=== PATIENT | female | born 1950 | race American Indian/Alaskan Native ===

== ENCOUNTER 2017-08-05 20:04 | Inpatient (IN) | payer BC, MEDICARE ==
--- NOTE | 2017-08-05 20:42 | Emergency Department Report ---
ED Shortness of Breath HPI - General Chief Complaint: Dyspnea/Respdistress Stated Complaint: THOMAS Time Seen by Provider: 08/05/17 20:38 Source: patient, family, EMS Mode of arrival: Stretcher Limitations: Altered Mental Status - History of Present Illness Initial Comments: Discussed HPI with patient. Patient states that she has been off her medications for two months and that her had two months ago. Her daughter states that she has not taken her medications in over a year, as well as patient's two years ago. The daughter says her memory has been bad for over a year. MD Complaint: shortness of breath -: week(s) (Patient says weeks, her family says months.) Severity: moderate Pain Scale: 0 Improves With: nothing Worsens With: nothing Known History Of: asthma Associated Symptoms: denies other symptoms - Related Data Home Medications Medication Instructions Recorded Confirmed Last Taken Levothyroxine [Synthroid] 150 mcg PO DAILY 05/28/14 01/25/15 Unknown Lisinopril/Hydrochlorothiazide 1 tab PO DAILY 05/28/14 01/25/15 Unknown [Zestoretic 20-25 mg] ALPRAZolam [Xanax TAB] 1 mg PO QHS 01/25/15 01/25/15 Unknown Amlodipine Besylate/Benazepril 1 cap PO DAILY 01/25/15 01/25/15 Unknown [amLODIPine-Benazepril 10/40 mg] Ciprofloxacin HCl [Cipro] 500 mg PO BID 01/25/15 01/25/15 Unknown Tramadol HCl [traMADol] 50 mg PO Q4H PRN 01/25/15 01/25/15 Unknown Previous Rx's Medication Instructions Recorded Last Taken Type Aspirin EC [Aspirin Enteric Coated 325 mg PO QDAY #30 tablet 05/30/14 Unknown Rx TAB] Metoprolol [Lopressor TAB] 25 mg PO BID #60 tablet 05/30/14 Unknown Rx Prasugrel [Effient] 10 mg PO QDAY #30 tablet 05/30/14 Unknown Rx Simvastatin [Zocor TAB] 10 mg PO QHS #30 tablet 05/30/14 Unknown Rx Cyclobenzaprine HCl [Flexeril 5mg] 5 mg PO Q8HR PRN #20 tablet 01/25/15 Unknown Rx HYDROcodone/APAP 5-325 [[place] 1 each PO Q6HR PRN #20 tablet 01/25/15 Unknown Rx 5/325] Ibuprofen [Motrin] 600 mg PO Q8H PRN #30 tablet 01/25/15 Unknown Rx Allergies Allergy/AdvReac Type Severity Reaction Status Date / Time codeine Allergy Itching Verified 05/26/14 19:56 shellfish derived Allergy Itching Verified 01/25/15 09:27 ED Review of Systems ROS: Stated complaint: THOMAS Other details as noted in HPI Comment: All other systems reviewed and negative Constitutional: see HPI. denies: chills, fever Eyes: denies: eye pain, eye discharge, vision change ENT: denies: ear pain, throat pain Respiratory: SOB with exertion, SOB at rest. denies: cough, shortness of breath , wheezing Cardiovascular: edema. denies: chest pain, palpitations Endocrine: no symptoms reported Gastrointestinal: denies: abdominal pain, nausea, diarrhea Genitourinary: denies: urgency, dysuria, discharge Musculoskeletal: denies: back pain, joint swelling, arthralgia Skin: denies: rash, lesions Neurological: denies: headache, weakness, paresthesias Psychiatric: denies: anxiety, depression Hematological/Lymphatic: denies: easy bleeding, easy bruising ED Past Medical Hx - Past Medical History Hx Hypertension: Yes Hx Heart Attack/AMI: Yes Hx Diabetes: Yes Hx Arthritis: Yes Hx Asthma: Yes Additional medical history: hypothyroid - Surgical History Additional Surgical History: 2 c sections, left hip surgery. - Social History Smoking Status: Former Smoker Substance Use Type: None - Medications Home Medications: Home Medications Medication Instructions Recorded Confirmed Last Taken Type Levothyroxine [Synthroid] 150 mcg PO DAILY 05/28/14 01/25/15 Unknown History Lisinopril/Hydrochlorothiazide 1 tab PO DAILY 05/28/14 01/25/15 Unknown History [Zestoretic 20-25 mg] Aspirin EC [Aspirin Enteric Coated 325 mg PO QDAY #30 tablet 05/30/14 01/25/15 Unknown Rx TAB] Metoprolol [Lopressor TAB] 25 mg PO BID #60 tablet 05/30/14 01/25/15 Unknown Rx Prasugrel [Effient] 10 mg PO QDAY #30 tablet 05/30/14 01/25/15 Unknown Rx Simvastatin [Zocor TAB] 10 mg PO QHS #30 tablet 05/30/14 01/25/15 Unknown Rx ALPRAZolam [Xanax TAB] 1 mg PO QHS 01/25/15 01/25/15 Unknown History Amlodipine Besylate/Benazepril 1 cap PO DAILY 01/25/15 01/25/15 Unknown History [amLODIPine-Benazepril 10/40 mg] Ciprofloxacin HCl [Cipro] 500 mg PO BID 01/25/15 01/25/15 Unknown History Cyclobenzaprine HCl [Flexeril 5mg] 5 mg PO Q8HR PRN #20 tablet 01/25/15 Unknown Rx HYDROcodone/APAP 5-325 [[place] 1 each PO Q6HR PRN #20 tablet 01/25/15 Unknown Rx 5/325] Ibuprofen [Motrin] 600 mg PO Q8H PRN #30 tablet 01/25/15 Unknown Rx Tramadol HCl [traMADol] 50 mg PO Q4H PRN 01/25/15 01/25/15 Unknown History ED Physical Exam - General Limitations: Altered Mental Status General appearance: alert, in no apparent distress, obese - Head Head exam: Present: atraumatic, normocephalic - Eye Eye exam: Present: normal appearance - ENT ENT exam: Present: mucous membranes moist - Neck Neck exam: Present: normal inspection - Respiratory Respiratory exam: Present: rales. Absent: respiratory distress - Expanded Respiratory Exam Expanded Location: Rales: Right, Left, Lower, Decreased Breath Sounds: Right - Cardiovascular Cardiovascular Exam: Present: regular rate, normal rhythm. Absent: systolic murmur, diastolic murmur, rubs, gallop - GI/Abdominal GI/Abdominal exam: Present: soft, normal bowel sounds. Absent: distended, tenderness - Rectal Rectal exam: Present: deferred - Extremities Exam Extremities exam: Present: normal inspection - Back Exam Back exam: Present: normal inspection - Neurological Exam Neurological exam: Present: alert, oriented X3, CN II-XII intact - Psychiatric Psychiatric exam: Present: normal affect, normal mood, flat affect - Expanded Psychiatric Exam Expanded Focused psych exam: Present: delusional, paranoid, flight of ideas, loose associations - Skin Skin exam: Present: warm, dry, intact, normal color. Absent: rash ED Course Vital Signs 08/05/17 08/05/17 08/05/17 20:52 21:06 21:25 Temperature 98.5 F 98.5 F Pulse Rate 85 85 Respiratory 20 20 20 Rate Blood Pressure 161/85 Blood Pressure 161/85 [Left] O2 Sat by Pulse 96 96 96 Oximetry 08/05/17 22:55 Temperature Pulse Rate 86 Respiratory Rate Blood Pressure 145/90 Blood Pressure [Left] O2 Sat by Pulse Oximetry ED Medical Decision Making - Lab Data Result diagrams: 08/05/17 22:56 08/05/17 22:08 - EKG Data -: EKG Interpreted by Me EKG shows normal: sinus rhythm Rate: normal - EKG Data When compared to previous EKG there are: changes noted Interpretation: nonspecific ST-T wave joaquin, other (prolonged QT) - Radiology Data Radiology results: pending - Medical Decision Making Discussed patient with Dr. Nunes, Hospitalist. She has arrived in the ER and evaluated patient and admit. Critical care attestation.: If time is entered above; I have spent that time in minutes in the direct care of this critically ill patient, excluding procedure time. ED Disposition Clinical Impression: Altered mental status, unspecified Disposition: [id number] OP ADMIT IP TO THIS HOSP Is pt being admited?: Yes Does the pt Need Aspirin: No Condition: Stable Referrals: PRIMARY CARE, [Primary Care Provider] - 3-5 Days
[2017-08-05] MEDS ORDERED: NACL 0.9% 1000 ML 1,000 ML IV ONE (22:01)
[2017-08-05] MEDS ORDERED: CATAPRES PO ONE (22:08)
[2017-08-05 22:49] LABS: Alanine Aminotransferase 10 units/L (7-56); Albumin 3.9 g/dL (3.9-5); BUN/Creatinine Ratio 7; Blood Urea Nitrogen 5 mg/dL (7-17); Calcium 8.1 mg/dL (8.4-10.2); Hemolysis Index 28
[2017-08-05 23:20] LABS: Basophils % (Auto) 0.6 % (0.0-1.8); Eosinophils % (Auto) 0.3 % (0.0-4.3); Hematocrit 32.6 % (30.3-42.9); Lymphocytes # (Auto) 0.3 K/mm3 (1.2-5.4); Lymphocytes % (Auto) 5.4 % (13.4-35.0); Mean Corpuscular HGB Conc 34 % (30-34); Mean Corpuscular Hemoglobin 29 pg (28-32); Mean Corpuscular Volume 85 fl (79-97); Monocytes # (Auto) 0.2 K/mm3 (0.0-0.8); Monocytes % (Auto) 4.5 % (0.0-7.3); Platelet Count 294 K/mm3 (140-440); Red Blood Count 3.84 M/mm3 (3.65-5.03); Red Cell Distribution Width 14.8 % (13.2-15.2)
--- NOTE | 2017-08-05 23:26 | History and Physical Report ---
History of Present Illness Date of examination: 08/05/17 Chief complaint: Shortness of breath History of present illness: Patient is a 67-year-old female who has been brought to the ER for altered mental status severe confusion. The patient has baseline dementia which has been rapidly and progressively worsening over the past 2 years. Patient was brought in by the daughter herself is being seen in the emergency room. Patient could not provide any history so most of the history is obtained from the daughter. As per Dr. Cross the patient lost her daughter because of diabetes and its complications back in 2011 and after that she started declining was grieving then into depression and started using her memory. He stopped taking her medicines stopped taking care for himself and stopped going to the doctor' s. Patient also lost her in February 2016 since then her depression and her grieving doubled and she completely lost any interest in herself. She stopped taking all of her medications and stopped bathing and stopped going out of the house. Over the past 2 past the patient has been rapidly declining and today she started complaining of feeling very bad and was also complaining of severe shortness of breath so she was brought to the ER for further evaluation and management. The daughter did not report any fevers chills headache nausea vomiting. No tingling numbness or weakness except for generalized weakness. No abdominal plain diet without nausea or vomiting no other GI or symptoms Past History Past Medical History: arthritis, CAD, diabetes, GERD, hypertension, hyperlipidemia, hypothyroidism, other Past Surgical History: cholecystectomy, , total hip replacement, Other (status post PCI ) Social history: lives with family, full code. denies: smoking, alcohol abuse Family history: diabetes, hypertension Medications and Allergies Allergies Allergy/AdvReac Type Severity Reaction Status Date / Time codeine Allergy Itching Verified 05/26/14 19:56 shellfish derived Allergy Itching Verified 01/25/15 09:27 Home Medications Medication Instructions Recorded Confirmed Last Taken Type Levothyroxine [Synthroid] 150 mcg PO DAILY 05/28/14 01/25/15 Unknown History Lisinopril/Hydrochlorothiazide 1 tab PO DAILY 05/28/14 01/25/15 Unknown History [Zestoretic 20-25 mg] Aspirin EC [Aspirin Enteric Coated 325 mg PO QDAY #30 tablet 05/30/14 01/25/15 Unknown Rx TAB] Metoprolol [Lopressor TAB] 25 mg PO BID #60 tablet 05/30/14 01/25/15 Unknown Rx Prasugrel [Effient] 10 mg PO QDAY #30 tablet 05/30/14 01/25/15 Unknown Rx Simvastatin [Zocor TAB] 10 mg PO QHS #30 tablet 05/30/14 01/25/15 Unknown Rx ALPRAZolam [Xanax TAB] 1 mg PO QHS 01/25/15 01/25/15 Unknown History Amlodipine Besylate/Benazepril 1 cap PO DAILY 01/25/15 01/25/15 Unknown History [amLODIPine-Benazepril 10/40 mg] Ciprofloxacin HCl [Cipro] 500 mg PO BID 01/25/15 01/25/15 Unknown History Cyclobenzaprine HCl [Flexeril 5mg] 5 mg PO Q8HR PRN #20 tablet 01/25/15 Unknown Rx HYDROcodone/APAP 5-325 [[place] 1 each PO Q6HR PRN #20 tablet 01/25/15 Unknown Rx 5/325] Ibuprofen [Motrin] 600 mg PO Q8H PRN #30 tablet 01/25/15 Unknown Rx Tramadol HCl [traMADol] 50 mg PO Q4H PRN 01/25/15 01/25/15 Unknown History Active Meds: Active Medications Sodium Chloride (Nacl 0.9% 1000 Ml) 1,000 mls @ 125 mls/hr IV ONCE ONE Stop: 08/06/17 06:00 Last Admin: 08/05/17 22:55 Dose: 125 mls/hr Review of Systems ROS unobtainable: due to mental status Exam - Physical Exam Narrative exam: General: the patient morbidly obese. She is awake alert oriented to self only but not to time place and person. no evidence of acute distress but she is obviously hallucinating seeing her mother and brother and asking me if I can see her too. Her mother in 1986. HEENT: Head is atraumatic normocephalic,. Pupils equal round reactive to light and accommodation, extraocular movements intact. Oral mucosa moist. Oropharynx clear. No pharyngeal erythema or tonsillar exudate. Neck: Supple no JVD no thyromegaly or lymphadenopathy. Heart: Regular rate and rhythm no murmurs or gallops. S1 and S2 normal. PMI not displaced. Lungs: Diffuse rales and rhonchi bilaterally but no wheezing. Mildly labored breathing but no accessory respiratory muscle use. Normal chest wall expansion. Abdomen: Soft, obese, nondistended, and nontender. Normoactive bowel sounds. No hepatosplenomegaly. No abdominal masses or bruit appreciated. Extremities: No cyanosis/clubbing. There is 1+ edema bilateral lower extremities Musculoskeletal: Normal range of movement all joints. No obvious deformity or tenderness to palpation. Normal muscle tone. Back: Normal alignment. No step-off. No midline or paraspinal tenderness. No CVA tenderness. Neurological: Grossly intact and nonfocal. Limited exam because of her altered mental status. Patient moving all 4 extremities equally bilaterally. She is able to follow simple commands. Strength 5 out of 5 all 4 extremities. Skin: Warm and dry no rashes or bruises. Psychiatric: Normal mood. Patient is severely confused and having visual hallucinations. Patient also is exhibiting severe cognitive impairment. Impaired judgment. No paranoia. She is delusional and disoriented. Otherwise able to follow simple commands Vascular system: No lymphadenopathy. Distal pulses 2+ bilaterally. - Constitutional Vitals: Temp Pulse Resp BP Pulse Ox 98.5 F 86 20 145/90 96 08/05/17 21:06 08/05/17 22:55 08/05/17 21:25 08/05/17 22:55 08/05/17 21:25 Results - Labs CBC & Chem 7: 08/05/17 22:56 08/05/17 22:08 Labs: Laboratory Last Values WBC 5.5 K/mm3 (4.5-11.0) 08/05/17 22:56 RBC 3.84 M/mm3 (3.65-5.03) 08/05/17 22:56 Hgb 11.0 gm/dl (10.1-14.3) 08/05/17 22:56 Hct 32.6 % (30.3-42.9) 08/05/17 22:56 MCV 85 fl (79-97) 08/05/17 22:56 MCH 29 pg (28-32) 08/05/17 22:56 MCHC 34 % (30-34) 08/05/17 22:56 RDW 14.8 % (13.2-15.2) 08/05/17 22:56 Plt Count 294 K/mm3 (140-440) 08/05/17 22:56 Lymph % (Auto) 5.4 % (13.4-35.0) L 08/05/17 22:56 [place] % (Auto) 4.5 % (0.0-7.3) 08/05/17 22:56 Eos % (Auto) 0.3 % (0.0-4.3) 08/05/17 22:56 Baso % (Auto) 0.6 % (0.0-1.8) 08/05/17 22:56 Lymph # 0.3 K/mm3 (1.2-5.4) L 08/05/17 22:56 Sampson # 0.2 K/mm3 (0.0-0.8) 08/05/17 22:56 Eos # 0.0 K/mm3 (0.0-0.4) 08/05/17 22:56 Baso # 0.0 K/mm3 (0.0-0.1) 08/05/17 22:56 Seg Neutrophils % 89.2 % (40.0-70.0) H 08/05/17 22:56 Seg Neutrophils # 4.9 K/mm3 (1.8-7.7) 08/05/17 22:56 Sodium 137 mmol/L (137-145) 08/05/17 22:08 Potassium 3.0 mmol/L (3.6-5.0) L 08/05/17 22:08 Chloride 89.3 mmol/L (98-107) L 08/05/17 22:08 Carbon Dioxide 25 mmol/L (22-30) 08/05/17 22:08 Anion Gap 26 mmol/L 08/05/17 22:08 BUN 5 mg/dL (7-17) L 08/05/17 22:08 Creatinine 0.7 mg/dL (0.7-1.2) 08/05/17 22:08 Estimated GFR > 60 ml/min 08/05/17 22:08 BUN/Creatinine Ratio 7 % 08/05/17 22:08 Glucose 117 mg/dL (65-100) H 08/05/17 22:08 POC Glucose 115 (70-105) H 08/05/17 22:45 Calcium 8.1 mg/dL (8.4-10.2) L 12/27/17 22:08 Total Bilirubin 2.00 mg/dL (0.1-1.2) H 08/05/17 22:08 AST 20 units/L (5-40) 08/05/17 22:08 ALT 10 units/L (7-56) 08/05/17 22:08 Alkaline Phosphatase 67 units/L (35-129) 08/05/17 22:08 Troponin T 0.028 ng/mL (0.00-0.029) 08/05/17 22:08 Total Protein 7.9 g/dL (6.3-8.2) 08/05/17 22:08 Albumin 3.9 g/dL (3.9-5) 08/05/17 22:08 Albumin/Globulin Ratio 1.0 % 08/05/17 22:08 - Imaging and Cardiology Imaging and Cardiology: Chest x-ray showing bands of atelectasis in both bases. No dense consolidations or effusions seen. Pulmonary vasculature appear normal. Assessment and Plan Assessment and plan: Assessment and plan - * Altered mental status - likely multifactorial worsening dementia plus acute delirium plus severe depression * Shortness of breath - likely underlying CHF versus pneumonia * Pneumonia - likely right lower lobe although chest x-ray negative except for bilateral lower lobe atelectasis * Coronary artery disease status post PCI in 2013 * Diabetes mellitus type 2 * Hypothyroidism * Hypokalemia Plan - -Will admit the patient to medical floor for telemetry Echocardiogram to evaluate underlying cardiac function Lasix for diuresis Replace potassium and monitor We will also get a CTA chest to rule out PE versus pneumonia versus CHF Empiric Levaquin for possible pneumonia Monitor CBC and electrolytes Replace electrolytes when necessary as per protocol DVT GI prophylaxis as ordered Monitor and follow the patient closely Advance Directives: No VTE prophylaxis?: Chemical, Mechanical Plan of care discussed with patient/family: Yes
[2017-08-05] MEDS ORDERED: MILK OF MAGNESIA PO PRN (23:28)
[2017-08-05] MEDS ORDERED: DULCOLAX PR PRN (23:28)
[2017-08-05] MEDS ORDERED: TYLENOL PO PRN (23:28)
[2017-08-05] MEDS ORDERED: AMBIEN PO PRN (23:28)
[2017-08-05] MEDS ORDERED: PROVENTIL IH PRN (23:28)
[2017-08-05 23:31] LABS: INR 0.97 (0.87-1.13)
[2017-08-05 23:32] LABS: Partial Thromboplastin Time 27.5 Sec. (24.2-36.6)
[2017-08-05] MEDS ORDERED: ULTRAM PO PRN (23:39)
[2017-08-05] MEDS ORDERED: APRESOLINE IV PRN (23:42)
--- NOTE | 2017-08-06 00:08 | XRay Report ---
FINAL REPORT PROCEDURE: XR CHEST 1V AP TECHNIQUE: Chest radiograph anteroposterior view. CPT 97733 HISTORY: SOB COMPARISON: No prior studies are available for comparison. FINDINGS: There is a linear band of increased density overlying the lower 3rd of the right lung and a smaller band of increased density lateral to the left heart border suggesting bands of atelectasis. No dense consolidations or effusions are identified. Heart size and pulmonary vasculature appear normal. No acute bony abnormalities are identified. IMPRESSION: Bands of atelectasis suspected in both bases. No other abnormalities are identified..
[2017-08-06 01:03] LABS: Creatine Kinase MB 2.1 ng/mL (0.0-4.0)
[2017-08-06 01:52] LABS: Chol/HDL Ratio 8.02 %
[2017-08-06] MEDS ORDERED: NACL ONE (02:24)
[2017-08-06 06:31] LABS: Hematocrit 33.9 % (30.3-42.9); Hemoglobin 11.1 gm/dl (10.1-14.3); Mean Corpuscular HGB Conc 33 % (30-34); Mean Corpuscular Hemoglobin 28 pg (28-32); Mean Corpuscular Volume 86 fl (79-97); Platelet Count 323 K/mm3 (140-440); Red Blood Count 3.94 M/mm3 (3.65-5.03)
[2017-08-06 06:48] LABS: Creatine Kinase MB 2.5 ng/mL (0.0-4.0)
[2017-08-06 06:52] LABS: Alanine Aminotransferase 10 units/L (7-56); Albumin 3.8 g/dL (3.9-5); BUN/Creatinine Ratio 8; Blood Urea Nitrogen 5 mg/dL (7-17); Calcium 8.1 mg/dL (8.4-10.2); Hemolysis Index 9
[2017-08-06 07:05] LABS: Free T4 (Free Thyroxine) 0.1 ng/dL (0.76-1.46)
--- NOTE | 2017-08-06 08:15 | Cat Scan Report ---
CT CHEST WITHOUT CONTRAST: HISTORY: Shortness of breath. COMPARISON: CTA chest dated 05/07/12. TECHNIQUE: Helical CT in 1.25mm intervals without IV contrast. Sagittal and coronal reformatted images. FINDINGS: Thyroid gland: Normal. Tracheobronchial tree: Normal. Esophagus: Normal. Heart: Normal size. Mild coronary artery calcifications are noted. Pericardium: Normal. Mediastinum: Normal. Lung [place]: There are moderate atelectatic changes at the right lung base and mild atelectatic changes at the left lung base. There is mild consolidation in the posterior segment of the right lower lobe but this probably represents atelectasis and not infiltrate, please correlate with the patient's clinical presentation. No underlying parenchymal lung disease is appreciated. Pleural Spaces: Small right pleural effusion has developed which is of uncertain etiology. No pneumothorax. Musculoskeletal: Mild to moderate thoracic spondylosis. No fracture or suspicious bony lesion. Diffuse decreased attenuation has developed in the liver since previous exam suggesting diffuse fatty infiltration or liver edema. Cholecystectomy changes. IMPRESSION: Small right pleural effusion of uncertain etiology. Bibasilar atelectatic changes, right greater than left. Diffuse hypoattenuation of the liver has developed most consistent with diffuse fatty infiltration.
[2017-08-06 08:34] LABS: Band Neutrophils # (Manual) 0.1 K/mm3; Basophils % (Manual) 0 % (0.0-1.8); Eosinophils % (Manual) 0 % (0.0-4.3); Total Cells Counted 100
[2017-08-06 08:35] LABS: Anisocytosis 1+; Ovalocytes 1+
--- NOTE | 2017-08-06 09:13 | Progress Note ---
Assessment and Plan Assessment and plan: Patient is a 67-year-old female who has been brought to the ER for altered mental status severe confusion. The patient has baseline dementia which has been rapidly and progressively worsening over the past 2 years. Patient was brought in by the daughter herself is being seen in the emergency room. P the patient lost her daughter because of diabetes and its complications back in 2011 and after that she started declining was grieving then into depression and started losing her memory. He stopped taking her medicines stopped taking care for herself and stopped going to the doctor's. Patient also lost her in February 2016 since then her depression and her grieving doubled and she completely lost any interest in herself. She stopped taking all of her medications and stopped bathing and stopped going out of the house. Over the past 2 past the patient has been rapidly declining and today she started complaining of feeling very bad and was also complaining of severe shortness of breath so she was brought to the ER for further evaluation and management. Assessment and plan - Acute Metabolic encephalopathy - likely multifactorial worsening dementia plus acute delirium plus severe depression, plus severe hypothyroidism Acute respiratory failure with hypoxia - PNA ruled out, will obtain CTA chest, continue nebs, oxygen supplement and lasix Coronary artery disease status post PCI in 2013 COPD exacerbation? Pulmonary consult, continue nebs, steroids and abx Systolic CHF with exacerbation echo shows EF of 40%, continue lasix, cardiology consult Major Depression, mental health consult Diabetes mellitus type 2: continue SSI Hypothyroidism, T4 markedly reduced, Hypokalemia: fup magnesium, replace IV and PO Severe malnutrition: statement clerks manager consult, encouraged to increase PO intake Hyperlipidemia LDL 275- resumed statin History Interval history: admits sob, herrera, denies CP denies fever or chills admits generalized weakness denies focal weakness admits constipation no diarrhea Hospitalist Physical - Constitutional Vitals: Temp Pulse Resp BP Pulse Ox 98.9 F 114 H 20 160/111 96 08/06/17 07:22 08/06/17 07:22 08/06/17 07:22 08/06/17 07:22 08/06/17 07:22 General appearance: Present: no acute distress, disheveled, other (appears chronically ill) - EENT Eyes: Present: PERRL, EOM intact ENT: hearing intact, clear oral mucosa - Neck Neck: Present: supple, normal ROM - Respiratory Respiratory effort: normal Respiratory: bilateral: rhonchi - Cardiovascular Rhythm: regular Heart Sounds: Present: S1 & S2 - Extremities Extremities: no ischemia Peripheral Pulses: within normal limits - Abdominal General gastrointestinal: soft, non-tender - Integumentary Integumentary: Present: clear, warm - Psychiatric Psychiatric: no appropriate mood/affect (depr), depressed - Neurologic Neurologic: CNII-XII intact, focal deficits, moves all extremities Results - Labs CBC & Chem 7: 08/06/17 06:03 08/06/17 06:03 Labs: Laboratory Last Values WBC 5.6 K/mm3 (4.5-11.0) 08/06/17 06:03 RBC 3.94 M/mm3 (3.65-5.03) 08/06/17 06:03 Hgb 11.1 gm/dl (10.1-14.3) 08/06/17 06:03 Hct 33.9 % (30.3-42.9) 08/06/17 06:03 MCV 86 fl (79-97) 08/06/17 06:03 MCH 28 pg (28-32) 08/06/17 06:03 MCHC 33 % (30-34) 08/06/17 06:03 RDW 15.0 % (13.2-15.2) 08/06/17 06:03 Plt Count 323 K/mm3 (140-440) 08/06/17 06:03 Lymph % (Auto) 5.4 % (13.4-35.0) L 08/05/17 22:56 [place] % (Auto) 4.5 % (0.0-7.3) 08/05/17 22:56 Eos % (Auto) 0.3 % (0.0-4.3) 08/05/17 22:56 Baso % (Auto) 0.6 % (0.0-1.8) 08/05/17 22:56 Lymph # 0.3 K/mm3 (1.2-5.4) L 08/05/17 22:56 [place] # 0.2 K/mm3 (0.0-0.8) 08/05/17 22:56 Eos # 0.0 K/mm3 (0.0-0.4) 08/05/17 22:56 Baso # 0.0 K/mm3 (0.0-0.1) 08/05/17 22:56 Add Manual Diff Complete 08/06/17 06:03 Total Counted 100 08/06/17 06:03 Seg Neutrophils % Retail Support Specialist 08/06/17 06:03 Seg Neuts % (Manual) 90.0 % (40.0-70.0) H 08/06/17 06:03 Band Neutrophils % 1.0 % 08/06/17 06:03 Lymphocytes % (Manual) 8.0 % (13.4-35.0) L 08/06/17 06:03 Reactive Lymphs % (Man) 0 % 08/06/17 06:03 Monocytes % (Manual) 1.0 % (0.0-7.3) 08/06/17 06:03 Eosinophils % (Manual) 0 % (0.0-4.3) 08/06/17 06:03 Basophils % (Manual) 0 % (0.0-1.8) 08/06/17 06:03 Metamyelocytes % 0 % 08/06/17 06:03 Myelocytes % 0 % 08/06/17 06:03 Promyelocytes % 0 % 08/06/17 06:03 Blast Cells % 0 % 08/06/17 06:03 Nucleated RBC % Not Reportable 08/06/17 06:03 Seg Neutrophils # 4.9 K/mm3 (1.8-7.7) 08/05/17 22:56 Seg Neutrophils # Man 5.0 K/mm3 (1.8-7.7) 08/06/17 06:03 Band Neutrophils # 0.1 K/mm3 08/06/17 06:03 Lymphocytes # (Manual) 0.4 K/mm3 (1.2-5.4) L 08/06/17 06:03 Abs React Lymphs (Man) 0.0 K/mm3 08/06/17 06:03 Monocytes # (Manual) 0.1 K/mm3 (0.0-0.8) 08/06/17 06:03 Eosinophils # (Manual) 0.0 K/mm3 (0.0-0.4) 08/06/17 06:03 Basophils # (Manual) 0.0 K/mm3 (0.0-0.1) 08/06/17 06:03 Metamyelocytes # 0.0 K/mm3 08/06/17 06:03 Myelocytes # 0.0 K/mm3 08/06/17 06:03 Promyelocytes # 0.0 K/mm3 08/06/17 06:03 Blast Cells # 0.0 K/mm3 08/06/17 06:03 WBC Morphology Not Reportable 08/06/17 06:03 Hypersegmented Neuts Not Reportable 08/06/17 06:03 Hyposegmented Neuts Not Reportable 08/06/17 06:03 Hypogranular Neuts Not Reportable 08/06/17 06:03 Smudge Cells Not Reportable 08/06/17 06:03 Toxic Granulation Not Reportable 08/06/17 06:03 Toxic Vacuolation Not Reportable 08/06/17 06:03 Dohle Bodies Not Reportable 08/06/17 06:03 Pelger-Huet Anomaly Not Reportable 08/06/17 06:03 [place] Rods Not Reportable 08/06/17 06:03 Platelet Estimate Not Reportable 08/06/17 06:03 Clumped Platelets Not Reportable 08/06/17 06:03 Plt Clumps, EDTA Not Reportable 08/06/17 06:03 Large Platelets Not Reportable 08/06/17 06:03 Giant Platelets Not Reportable 08/06/17 06:03 Platelet Satelliting Not Reportable 08/06/17 06:03 Plt Morphology Comment Not Reportable 08/06/17 06:03 RBC Morphology Not Reportable 08/06/17 06:03 Dimorphic RBCs Not Reportable 08/06/17 06:03 Polychromasia Not Reportable 08/06/17 06:03 Hypochromasia Not Reportable 08/06/17 06:03 Poikilocytosis Not Reportable 08/06/17 06:03 Anisocytosis 1+ 08/06/17 06:03 Microcytosis Not Reportable 08/06/17 06:03 Macrocytosis Not Reportable 08/06/17 06:03 Spherocytes Not Reportable 08/06/17 06:03 Pappenheimer Bodies Not Reportable 08/06/17 06:03 Sickle Cells Not Reportable 08/06/17 06:03 Target Cells Not Reportable 08/06/17 06:03 Tear Drop Cells Not Reportable 08/06/17 06:03 Ovalocytes 1+ 08/06/17 06:03 Helmet Cells Not Reportable 08/06/17 06:03 [place] Bodies Not Reportable 08/06/17 06:03 [place] Rings Not Reportable 08/06/17 06:03 Seble Cells Not Reportable 08/06/17 06:03 Bite Cells Not Reportable 08/06/17 06:03 Crenated Cell Not Reportable 08/06/17 06:03 Elliptocytes 1+ 08/06/17 06:03 Acanthocytes (Spur) Not Reportable 08/06/17 06:03 Rouleaux Not Reportable 08/06/17 06:03 Hemoglobin C Crystals Not Reportable 08/06/17 06:03 Schistocytes Not Reportable 08/06/17 06:03 Malaria parasites Not Reportable 08/06/17 06:03 Derek Bodies Not Reportable 08/06/17 06:03 Hem Pathologist Commnt No 08/06/17 06:03 PT 13.4 Sec. (12.2-14.9) 08/05/17 22:56 INR 0.97 (0.87-1.13) 08/05/17 22:56 APTT 27.5 Sec. (24.2-36.6) 08/05/17 22:56 D-Dimer 1438.48 ng/mlDDU (0-234) H 08/05/17 22:56 Sodium 137 mmol/L (137-145) 08/06/17 06:03 Potassium 2.5 mmol/L (3.6-5.0) L* 08/06/17 06:03 Chloride 88.8 mmol/L (98-107) L 08/06/17 06:03 Carbon Dioxide 20 mmol/L (22-30) L 08/06/17 06:03 Anion Gap 31 mmol/L 08/06/17 06:03 BUN 5 mg/dL (7-17) L 08/06/17 06:03 Creatinine 0.6 mg/dL (0.7-1.2) L 08/06/17 06:03 Estimated GFR > 60 ml/min 08/06/17 06:03 BUN/Creatinine Ratio 8 % 08/06/17 06:03 Glucose 151 mg/dL (65-100) H 08/06/17 06:03 POC Glucose 145 (70-105) H 08/06/17 07:28 Hemoglobin A1c 5.2 % (4-6) 08/05/17 Unknown Lactic Acid 1.30 mmol/L (0.7-2.0) 08/05/17 22:56 Calcium 8.1 mg/dL (8.4-10.2) L 08/06/17 06:03 Total Bilirubin 1.80 mg/dL (0.1-1.2) H 08/06/17 06:03 AST 19 units/L (5-40) 08/06/17 06:03 ALT 10 units/L (7-56) 08/06/17 06:03 Alkaline Phosphatase 66 units/L (35-129) 08/06/17 06:03 Total Creatine Kinase 396 units/L (30-135) H 08/06/17 Unknown CK-MB (CK-2) 2.1 ng/mL (0.0-4.0) 08/06/17 Unknown CK-MB (CK-2) Rel Index 0.5 (0-4) 08/06/17 Unknown Troponin T 0.028 ng/mL (0.00-0.029) 08/05/17 22:08 Total Protein 8.0 g/dL (6.3-8.2) 08/06/17 06:03 Albumin 3.8 g/dL (3.9-5) L 08/06/17 06:03 Albumin/Globulin Ratio 0.9 % 08/06/17 06:03 Triglycerides 138 mg/dL (2-149) 08/05/17 23:35 Cholesterol 345 mg/dL (50-199) H 08/05/17 23:35 LDL Cholesterol Direct 275 mg/dL (50-130) H 08/05/17 23:35 HDL Cholesterol 43 mg/dL (40-59) 08/05/17 23:35 Cholesterol/HDL Ratio 8.02 % 08/05/17 23:35 TSH 29.780 mlU/mL (0.270-4.200) H 08/06/17 06:03 Free T4 0.10 ng/dL (0.76-1.46) L 08/06/17 06:03 - Imaging and Cardiology Venous US: image reviewed (no dvt in LE bilat)
--- NOTE | 2017-08-06 09:24 | Nuclear Medicine Report ---
LUNG SCAN, VENTILATION AND PERFUSION: History: Shortness of breath. Technique: 5mci of Tc99m MAA was infused for the perfusion images. 15mci XE 133 gas was inhaled for the ventilatory images. Correlation is made with a chest x-ray dated 08/05/[address] chest without contrast dated 08/06/70. Findings: Inhalation of Xenon gas demonstrates normal and homogeneous distribution of the radiotracer throughout the left lung. A moderate ventilation defect is noted at the right lung base which correlates with the small right pleural effusion/right basilar atelectasis on imaging. After injection of Technetium 99m macroaggregated albumin gamma camera imaging of the lungs in multiple projections demonstrates A solitary, small mismatched segmental perfusion defect in the posterior aspect of the left upper lobe. There is also a moderate matched nonsegmental perfusion defect at the right lung base which correlates with the right pleural effusion/right basilar atelectasis. IMPRESSION: Low probability for pulmonary embolus by PIOPED criteria.
[2017-08-06] MEDS ORDERED: AMLODIPINE BESYLATE PO SCH (10:00)
[2017-08-06] MEDS ORDERED: BENAZEPRIL PO SCH (10:00)
[2017-08-06] MEDS: LOPRESSOR PO SCH ×2 (11:07→22:05)
[2017-08-06] MEDS: ECOTRIN PO SCH (11:07)
[2017-08-06] MEDS: D5W/NS W/KCL 40MEQ 40 MEQ/1,000 ML BAG IV SCH ×2 (11:10→18:58)
[2017-08-06] MEDS: NORVASC PO SCH (11:11)
[2017-08-06] MEDS: SENOKOT PO SCH ×2 (11:11→22:05)
[2017-08-06] MEDS: COLACE PO SCH ×2 (11:11→22:00)
[2017-08-06] MEDS: ZESTRIL PO SCH (11:12)
[2017-08-06] MEDS: LEVAQUIN 750MG/150ML 750 MG/150 ML BAG IV SCH (11:13)
[2017-08-06] MEDS: PEPCID PO SCH ×2 (11:13→22:05)
[2017-08-06] MEDS: LOVENOX SUB-Q SCH (11:22)
[2017-08-06] MEDS: DUONEB *Not for PRN Use IH SCH ×4 (11:23→20:08)
[2017-08-06] MEDS: EFFIENT PO SCH (11:23)
[2017-08-06 14:32] LABS: Creatine Kinase MB 2.5 ng/mL (0.0-4.0)
[2017-08-06 18:15] LABS: Bacteria,Urine 1+ /HPF (Negative); Bilirubin,Urine NEG (Negative); Blood,Urine NEG (Negative); Color,Urine Amber (Yellow); Mucus,Urine FEW /HPF; Nitrite,Urine NEG (Negative)
[2017-08-06 18:24] LABS: Amphetamine Screen,Urine PRESUMPTIVE NEGATIVE; Benzodiazepines Screen,Urine PRESUMPTIVE NEGATIVE; Cocaine Screen,Urine PRESUMPTIVE NEGATIVE; Methadone Screen,Urine PRESUMPTIVE NEGATIVE; Opiate Screen,Urine PRESUMPTIVE NEGATIVE
[2017-08-06] MEDS: LASIX IV SCH (19:01)
[2017-08-06 19:07] LABS: Cannabinoid Screen,Urine PRESUMPTIVE POSITIVE
[2017-08-06] MEDS ORDERED: NON-FORMULARY (Simvastatin 10 MG) PO SCH (22:00)
[2017-08-06] MEDS ORDERED: K-DUR PO ONE (22:09)
[2017-08-06] MEDS: PRAVACHOL PO SCH (22:10)
[2017-08-06] MEDS: KCL 10MEQ/100ML 10 MEQ/100 ML BAG IV SCH (23:25)
[2017-08-07] MEDS: DUONEB *Not for PRN Use IH SCH ×4 (02:08→19:21)
[2017-08-07] MEDS: KCL 10MEQ/100ML 10 MEQ/100 ML BAG IV SCH ×3 (03:45→09:19)
[2017-08-07] MEDS ORDERED: NACL 0.9% 500 ML 500 ML ONE (04:26)
[2017-08-07 06:15] LABS: BUN/Creatinine Ratio 6; Blood Urea Nitrogen 4 mg/dL (7-17); Calcium 7.7 mg/dL (8.4-10.2); Hemolysis Index 26
[2017-08-07] MEDS: LASIX IV SCH ×3 (06:35→17:20)
[2017-08-07] MEDS: SYNTHROID PO SCH (06:35)
--- NOTE | 2017-08-07 07:21 | Progress Note ---
Assessment and Plan Assessment and plan: 67 year old female who presented to the ER for altered mental status and confusion, patient has dementia, was not taking her medications Acute Metabolic encephalopathy - likely multifactorial worsening dementia plus acute delirium plus severe depression, plus severe hypothyroidism Acute respiratory failure with hypoxia - PE workup is negative COPD exacerbation - Pulmonary consult, continue nebs, steroids and abx Systolic CHF with exacerbation - Echo shows EF of 40%, continue lasix. - cardiology consult appreciated - Recommend MP test before discharge Major Depression - mental health consult Diabetes mellitus type 2: continue SSI - A1c is 5.2 Hypothyroidism - Patient started on levothyroxine Hypokalemia: - Today's potassium level is pending - Magnesium level is within normal limits Severe malnutrition - large engine assembler consult, encouraged to increase PO intake Hyperlipidemia - LDL 275- resumed statin DVT prophylaxis - Lovenox Disposition - continue inpatient care History Interval history: Patient was seen and evaluated this morning, No nursing issues overnight Hospitalist Physical - Physical exam Narrative exam: Not in cardiopulmonary distress. The patient appeared well nourished and normally developed. Vital signs as documented. Head exam is unremarkable. No scleral icterus . Neck is without jugular venous distension, thyromegaly, or carotid bruits. Lungs are clear to auscultation. Cardiac exam reveals regular rate and Rhythm. First and second heart sounds normal. No murmurs, rubs or gallops. Abdominal exam reveals normal bowel sounds, no masses, no organomegaly and no aortic enlargement. Extremities are nonedematous and both femoral and pedal pulses are normal. INFECTION PREVENTIONIST: Alert and oriented 3. No focal weakness. - Constitutional Vitals: Temp Pulse Resp BP Pulse Ox 99.0 F 101 H 20 126/72 97 08/06/17 15:19 08/06/17 22:05 08/06/17 20:03 08/06/17 22:05 08/06/17 19:55 General appearance: Present: no acute distress, disheveled, other (appears chronically ill) Results - Labs CBC & Chem 7: 08/06/17 06:03 08/07/17 05:19 Labs: Laboratory Last Values WBC 5.6 K/mm3 (4.5-11.0) 08/06/17 06:03 RBC 3.94 M/mm3 (3.65-5.03) 08/06/17 06:03 Hgb 11.1 gm/dl (10.1-14.3) 08/06/17 06:03 Hct 33.9 % (30.3-42.9) 08/06/17 06:03 MCV 86 fl (79-97) 08/06/17 06:03 MCH 28 pg (28-32) 08/06/17 06:03 MCHC 33 % (30-34) 08/06/17 06:03 RDW 15.0 % (13.2-15.2) 08/06/17 06:03 Plt Count 323 K/mm3 (140-440) 08/06/17 06:03 Lymph % (Auto) 5.4 % (13.4-35.0) L 08/05/17 22:56 [place] % (Auto) 4.5 % (0.0-7.3) 08/05/17 22:56 Eos % (Auto) 0.3 % (0.0-4.3) 08/05/17 22:56 Baso % (Auto) 0.6 % (0.0-1.8) 08/05/17 22:56 Lymph # 0.3 K/mm3 (1.2-5.4) L 08/05/17 22:56 [place] # 0.2 K/mm3 (0.0-0.8) 08/05/17 22:56 Eos # 0.0 K/mm3 (0.0-0.4) 08/05/17 22:56 Baso # 0.0 K/mm3 (0.0-0.1) 08/05/17 22:56 Add Manual Diff Complete 08/06/17 06:03 Total Counted 100 08/06/17 06:03 Seg Neutrophils % Treasury Manager 08/06/17 06:03 Seg Neuts % (Manual) 90.0 % (40.0-70.0) H 08/06/17 06:03 Band Neutrophils % 1.0 % 08/06/17 06:03 Lymphocytes % (Manual) 8.0 % (13.4-35.0) L 08/06/17 06:03 Reactive Lymphs % (Man) 0 % 08/06/17 06:03 Monocytes % (Manual) 1.0 % (0.0-7.3) 08/06/17 06:03 Eosinophils % (Manual) 0 % (0.0-4.3) 08/06/17 06:03 Basophils % (Manual) 0 % (0.0-1.8) 08/06/17 06:03 Metamyelocytes % 0 % 08/06/17 06:03 Myelocytes % 0 % 08/06/17 06:03 Promyelocytes % 0 % 08/06/17 06:03 Blast Cells % 0 % 08/06/17 06:03 Nucleated RBC % Not Reportable 08/06/17 06:03 Seg Neutrophils # 4.9 K/mm3 (1.8-7.7) 08/05/17 22:56 Seg Neutrophils # Man 5.0 K/mm3 (1.8-7.7) 08/06/17 06:03 Band Neutrophils # 0.1 K/mm3 08/06/17 06:03 Lymphocytes # (Manual) 0.4 K/mm3 (1.2-5.4) L 08/06/17 06:03 Abs React Lymphs (Man) 0.0 K/mm3 08/06/17 06:03 Monocytes # (Manual) 0.1 K/mm3 (0.0-0.8) 08/06/17 06:03 Eosinophils # (Manual) 0.0 K/mm3 (0.0-0.4) 08/06/17 06:03 Basophils # (Manual) 0.0 K/mm3 (0.0-0.1) 08/06/17 06:03 Metamyelocytes # 0.0 K/mm3 08/06/17 06:03 Myelocytes # 0.0 K/mm3 08/06/17 06:03 Promyelocytes # 0.0 K/mm3 08/06/17 06:03 Blast Cells # 0.0 K/mm3 08/06/17 06:03 WBC Morphology Not Reportable 08/06/17 06:03 Hypersegmented Neuts Not Reportable 08/06/17 06:03 Hyposegmented Neuts Not Reportable 08/06/17 06:03 Hypogranular Neuts Not Reportable 08/06/17 06:03 Smudge Cells Not Reportable 08/06/17 06:03 Toxic Granulation Not Reportable 08/06/17 06:03 Toxic Vacuolation Not Reportable 08/06/17 06:03 Dohle Bodies Not Reportable 08/06/17 06:03 Pelger-Huet Anomaly Not Reportable 08/06/17 06:03 Kemar Rods Not Reportable 08/06/17 06:03 Platelet Estimate Not Reportable 08/06/17 06:03 Clumped Platelets Not Reportable 08/06/17 06:03 Plt Clumps, EDTA Not Reportable 08/06/17 06:03 Large Platelets Not Reportable 08/06/17 06:03 Giant Platelets Not Reportable 08/06/17 06:03 Platelet Satelliting Not Reportable 08/06/17 06:03 Plt Morphology Comment Not Reportable 08/06/17 06:03 RBC Morphology Not Reportable 08/06/17 06:03 Dimorphic RBCs Not Reportable 08/06/17 06:03 Polychromasia Not Reportable 08/06/17 06:03 Hypochromasia Not Reportable 08/06/17 06:03 Poikilocytosis Not Reportable 08/06/17 06:03 Anisocytosis 1+ 08/06/17 06:03 Microcytosis Not Reportable 08/06/17 06:03 Macrocytosis Not Reportable 08/06/17 06:03 Spherocytes Not Reportable 08/06/17 06:03 Pappenheimer Bodies Not Reportable 08/06/17 06:03 Sickle Cells Not Reportable 08/06/17 06:03 Target Cells Not Reportable 08/06/17 06:03 Tear Drop Cells Not Reportable 08/06/17 06:03 Ovalocytes 1+ 08/06/17 06:03 Helmet Cells Not Reportable 08/06/17 06:03 [place] Bodies Not Reportable 08/06/17 06:03 [place] Rings Not Reportable 08/06/17 06:03 Seble Cells Not Reportable 08/06/17 06:03 Bite Cells Not Reportable 08/06/17 06:03 Crenated Cell Not Reportable 08/06/17 06:03 Elliptocytes 1+ 08/06/17 06:03 Acanthocytes (Spur) Not Reportable 08/06/17 06:03 Rouleaux Not Reportable 08/06/17 06:03 Hemoglobin C Crystals Not Reportable 08/06/17 06:03 Schistocytes Not Reportable 08/06/17 06:03 Malaria parasites Not Reportable 08/06/17 06:03 Derek Bodies Not Reportable 08/06/17 06:03 Hem Pathologist Commnt No 08/06/17 06:03 PT 13.4 Sec. (12.2-14.9) 08/05/17 22:56 INR 0.97 (0.87-1.13) 08/05/17 22:56 APTT 27.5 Sec. (24.2-36.6) 08/05/17 22:56 D-Dimer 1438.48 ng/mlDDU (0-234) H 08/05/17 22:56 Sodium 138 mmol/L (137-145) 08/07/17 05:19 Potassium TNR 08/07/17 05:19 Chloride 93.8 mmol/L (98-107) L 08/07/17 05:19 Carbon Dioxide 28 mmol/L (22-30) D 08/07/17 05:19 Anion Gap 19 mmol/L 08/07/17 05:19 BUN 4 mg/dL (7-17) L 08/07/17 05:19 Creatinine 0.7 mg/dL (0.7-1.2) 08/07/17 05:19 Estimated GFR > 60 ml/min 08/07/17 05:19 BUN/Creatinine Ratio 6 % 08/07/17 05:19 Glucose 144 mg/dL (65-100) H 08/07/17 05:19 POC Glucose 175 (70-105) H 08/06/17 23:18 Hemoglobin A1c 5.2 % (4-6) 08/05/17 Unknown Lactic Acid 1.30 mmol/L (0.7-2.0) 08/05/17 22:56 Calcium 7.7 mg/dL (8.4-10.2) L 08/07/17 05:19 Magnesium 1.90 mg/dL (1.7-2.3) 08/06/17 06:03 Total Bilirubin 1.80 mg/dL (0.1-1.2) H 08/06/17 06:03 AST 19 units/L (5-40) 08/06/17 06:03 ALT 10 units/L (7-56) 08/06/17 06:03 Alkaline Phosphatase 66 units/L (35-129) 08/06/17 06:03 Total Creatine Kinase 396 units/L (30-135) H 08/06/17 Unknown CK-MB (CK-2) 2.1 ng/mL (0.0-4.0) 08/06/17 Unknown CK-MB (CK-2) Rel Index 0.5 (0-4) 08/06/17 Unknown Troponin T 0.028 ng/mL (0.00-0.029) 08/05/17 22:08 Total Protein 8.0 g/dL (6.3-8.2) 08/06/17 06:03 Albumin 3.8 g/dL (3.9-5) L 08/06/17 06:03 Albumin/Globulin Ratio 0.9 % 08/06/17 06:03 Triglycerides 138 mg/dL (2-149) 08/05/17 23:35 Cholesterol 345 mg/dL (50-199) H 08/05/17 23:35 LDL Cholesterol Direct 275 mg/dL (50-130) H 08/05/17 23:35 HDL Cholesterol 43 mg/dL (40-59) 08/05/17 23:35 Cholesterol/HDL Ratio 8.02 % 08/05/17 23:35 TSH 29.780 mlU/mL (0.270-4.200) H 08/06/17 06:03 Free T4 0.10 ng/dL (0.76-1.46) L 08/06/17 06:03 Urine Color Marie (Yellow) 08/05/17 Unknown Urine Turbidity Slightly-cloudy (Clear) 08/05/17 Unknown Urine pH 6.0 (5.0-7.0) 08/05/17 Unknown Ur Specific [place] 1.018 (1.003-1.030) 08/05/17 Unknown Urine Protein 30 mg/dl mg/dL (Negative) 08/05/17 Unknown Urine Glucose (UA) Neg mg/dL (Negative) 08/05/17 Unknown Urine Ketones 80 mg/dL (Negative) 08/05/17 Unknown Urine Blood Neg (Negative) 08/05/17 Unknown Urine Nitrite Neg (Negative) 08/05/17 Unknown Urine Bilirubin Neg (Negative) 08/05/17 Unknown Urine Urobilinogen 4.0 mg/dL (<2.0) 08/05/17 Unknown Ur Leukocyte Esterase Sm (Negative) 08/05/17 Unknown Urine WBC (Auto) 8.0 /HPF (0.0-6.0) H 08/05/17 Unknown Urine RBC (Auto) 6.0 /HPF (0.0-6.0) 08/05/17 Unknown U Epithel Cells (Auto) 20.0 /HPF (0-13.0) H 08/05/17 Unknown Urine Bacteria (Auto) 1+ /HPF (Negative) 08/05/17 Unknown Urine Mucus Few /HPF 08/05/17 Unknown Urine Opiates Screen Presumptive negative 08/05/17 Unknown Urine Methadone Screen Presumptive negative 08/05/17 Unknown Ur Barbiturates Screen Presumptive negative 08/05/17 Unknown Ur Phencyclidine Scrn Presumptive negative 08/05/17 Unknown Ur Amphetamines Screen Presumptive negative 08/05/17 Unknown U Benzodiazepines Scrn Presumptive negative 08/05/17 Unknown Urine Cocaine Screen Presumptive negative 08/05/17 Unknown U Marijuana (THC) Screen Presumptive positive 08/05/17 Unknown Drugs of Abuse Note Disclamer 08/05/17 Unknown Potassium is pending
[2017-08-07] MEDS: LEVAQUIN 750MG/150ML 750 MG/150 ML BAG IV SCH (09:07)
[2017-08-07] MEDS: COLACE PO SCH ×2 (09:11→22:38)
[2017-08-07] MEDS: SENOKOT PO SCH ×2 (09:15→22:39)
[2017-08-07] MEDS: PEPCID PO SCH ×2 (09:15→22:38)
[2017-08-07] MEDS: LOPRESSOR PO SCH ×2 (09:16→22:39)
[2017-08-07] MEDS: K-DUR PO SCH (09:17)
[2017-08-07] MEDS: EFFIENT PO SCH (09:18)
[2017-08-07] MEDS: LOVENOX SUB-Q SCH (09:29)
[2017-08-07] MEDS: ECOTRIN PO SCH (09:31)
[2017-08-07] MEDS: NORVASC PO SCH (10:11)
[2017-08-07] MEDS: ZESTRIL PO SCH (10:12)
--- NOTE | 2017-08-07 13:15 | Consultation ---
History of Present Illness Consult date: 08/07/17 Consult reason: congestive heart failure History of present illness: This is a 67yr old woman with a history of coronary artery disease who has been lost to outpatient cardiac follow ups. She was brought to this hospital with shortness of breath and alteration of mental status. It's been reported that the patient has underlying Dementia at baseline. A cardiac consultation was requested for CHF. Chest x-ray suspects atelectasis of bilateral lung bases. An echocardiogram done this admission demonstrates a mildly decreased left ventricular systolic function, ejection fraction 40-45%. Patient denies chest pain and palpitations. Her ECG is a sinus rhythm, no acute ischemic changes. Initial labs most notable for a potassium of 2.5 and severe hypothyroidism with a TSH of 29.7. Past History Past Medical History: arthritis, CAD, diabetes, GERD, hypertension, hyperlipidemia, hypothyroidism Past Surgical History: cholecystectomy, , total hip replacement Social history: lives with family, full code. denies: smoking, alcohol abuse Family history: diabetes, hypertension Medications and Allergies Allergies Allergy/AdvReac Type Severity Reaction Status Date / Time codeine Allergy Itching Verified 05/26/14 19:56 shellfish derived Allergy Itching Verified 01/25/15 09:27 Home Medications Medication Instructions Recorded Confirmed Last Taken Type Levothyroxine [Synthroid] 150 mcg PO DAILY 05/28/14 08/06/17 Unknown History Lisinopril/Hydrochlorothiazide 1 tab PO DAILY 05/28/14 08/06/17 Unknown History [Zestoretic 20-25 mg] Aspirin EC [Aspirin Enteric Coated 325 mg PO QDAY #30 tablet 05/30/14 08/06/17 Unknown Rx TAB] Metoprolol [Lopressor TAB] 25 mg PO BID #60 tablet 05/30/14 08/06/17 Unknown Rx Prasugrel [Effient] 10 mg PO QDAY #30 tablet 05/30/14 08/06/17 Unknown Rx Simvastatin [Zocor TAB] 10 mg PO QHS #30 tablet 05/30/14 08/06/17 Unknown Rx ALPRAZolam [Xanax TAB] 1 mg PO QHS 01/25/15 08/06/17 Unknown History Amlodipine Besylate/Benazepril 1 cap PO DAILY 01/25/15 08/06/17 Unknown History [amLODIPine-Benazepril 10/40 mg] Ciprofloxacin HCl [Cipro] 500 mg PO BID 01/25/15 08/06/17 Unknown History Cyclobenzaprine HCl [Flexeril 5mg] 5 mg PO Q8HR PRN #20 tablet 01/25/15 Unknown Rx HYDROcodone/APAP 5-325 [[place] 1 each PO Q6HR PRN #20 tablet 01/25/15 08/06/17 Unknown Rx 5/325] Ibuprofen [Motrin] 600 mg PO Q8H PRN #30 tablet 01/25/15 08/06/17 Unknown Rx Tramadol HCl [traMADol] 50 mg PO Q4H PRN 01/25/15 08/06/17 Unknown History Active Meds: Active Medications Acetaminophen (Tylenol) 650 mg PO Q4H PRN PRN Reason: Pain MILD(1-3)/Fever >100.5/SYED Albuterol (Proventil) 2.5 mg IH Q4HRT PRN PRN Reason: Shortness Of Breath Albuterol/Ipratropium (Duoneb *Not For Prn Use*) 1 ampul IH Q6HRT [facility] Last Admin: 08/07/17 13:06 Dose: 1 ampul Amlodipine Besylate (Norvasc) 10 mg PO DAILY [facility] Last Admin: 08/07/17 10:11 Dose: Not Given Aspirin (Ecotrin) 325 mg PO QDAY [facility] Last Admin: 08/07/17 09:31 Dose: 325 mg Bisacodyl (Dulcolax) 10 mg [place] QDAY PRN PRN Reason: Constipation unrelieved by MOM Docusate Sodium (Colace) 100 mg PO BID [facility] Last Admin: 08/07/17 09:11 Dose: 100 mg Enoxaparin Sodium (Lovenox) 40 mg SUB-Q QDAY [facility] Last Admin: 08/07/17 09:29 Dose: 40 mg Famotidine (Pepcid) 20 mg PO BID [facility] Last Admin: 08/07/17 09:15 Dose: 20 mg Furosemide (Lasix) 40 mg IV 0600,1800 [facility] Last Admin: 08/07/17 06:35 Dose: 40 mg Hydralazine HCl (Apresoline) 10 mg IV Q4HR PRN PRN Reason: Hypertension Levofloxacin/Dextrose (Levaquin 750mg/150ml) 750 mg in 150 mls @ 100 mls/hr IV Q24HR [facility] PRN Reason: Protocol Last Admin: 08/07/17 09:07 Dose: 100 mls/hr Levothyroxine Sodium (Synthroid) 150 mcg PO DAILY@0600 [facility] Last Admin: 08/07/17 06:35 Dose: 150 mcg Lisinopril (Zestril) 40 mg PO DAILY [facility] Last Admin: 08/07/17 10:12 Dose: Not Given Magnesium Hydroxide (Milk Of Magnesia) 30 ml PO Q4H PRN PRN Reason: Constipation Metoprolol Tartrate (Lopressor) 25 mg PO BID [facility] Last Admin: 08/07/17 09:16 Dose: 25 mg Ondansetron HCl (Zofran) 4 mg IV Q8H PRN PRN Reason: N/V unrelieved by Regkristin Potassium Chloride (K-Dur) 40 meq PO QDAY [facility] Last Admin: 08/07/17 09:17 Dose: 40 meq Prasugrel (Effient) 10 mg PO QDAY [facility] Last Admin: 08/07/17 09:18 Dose: 10 mg Pravastatin Sodium (Pravachol) 20 mg PO QHS [facility] Last Admin: 08/06/17 22:10 Dose: 20 mg Senna (Senokot) 8.6 mg PO Q12HR [facility] Last Admin: 08/07/17 09:15 Dose: 8.6 mg Tramadol HCl (Ultram) 50 mg PO Q4H PRN PRN Reason: Pain Zolpidem Tartrate (Ambien) 5 mg PO QHS PRN PRN Reason: Insomnia Last Admin: 08/07/17 04:37 Dose: 5 mg Physical Examination Vital Signs Temp Pulse Resp BP Pulse Ox 98.5 F 85 20 161/85 96 08/05/17 20:52 08/05/17 20:52 08/05/17 20:52 08/05/17 20:52 08/05/17 20:52 General appearance: no acute distress Cardiac: Positive: Reg Rate and Rhythm Results 08/06/17 06:03 08/07/17 05:19 Cardiac Enzymes 08/06/17 Range/Units 13:07 CK-MB (CK-2) 2.5 (0.0-4.0) ng/mL Comprehensive Metabolic Panel 08/07/17 Range/Units 05:19 Sodium 138 (137-145) mmol/L Potassium TNR Chloride 93.8 L (98-107) mmol/L Carbon Dioxide 28 D (22-30) mmol/L BUN 4 L (7-17) mg/dL Creatinine 0.7 (0.7-1.2) mg/dL Glucose 144 H (65-100) mg/dL Calcium 7.7 L (8.4-10.2) mg/dL Assessment and Plan Alteration of mental status Shortness of breath EF 40-45% on echocardiogram this admission low probability for PE on ventilation scan negative for DVT Hypothyroidism Hypertension Hyperlipidemia Hypokalemia Hx of CAD
--- NOTE | 2017-08-07 14:14 | Consultation ---
History of Present Illness Consult date: 08/07/17 Requesting physician: BRYAN MILLER Reason for consult: dyspnea History of present illness: 67 yo w/ dementia, presents with increased SOB, wheezing, cough with yellow sputum. No chest pain, fevers, chills, hemoptysis. Feeling a little better since admit. States PSG recommended in past but she refused. Active Medications Acetaminophen (Tylenol) 650 mg PO Q4H PRN PRN Reason: Pain MILD(1-3)/Fever >100.5/SYED Albuterol (Proventil) 2.5 mg IH Q4HRT PRN PRN Reason: Shortness Of Breath Albuterol/Ipratropium (Duoneb *Not For Prn Use*) 1 ampul IH Q6HRT [facility] Last Admin: 08/07/17 13:06 Dose: 1 ampul Amlodipine Besylate (Norvasc) 10 mg PO DAILY [facility] Last Admin: 08/07/17 10:11 Dose: Not Given Aspirin (Ecotrin) 325 mg PO QDAY [facility] Last Admin: 08/07/17 09:31 Dose: 325 mg Bisacodyl (Dulcolax) 10 mg [place] QDAY PRN PRN Reason: Constipation unrelieved by MOM Docusate Sodium (Colace) 100 mg PO BID [facility] Last Admin: 08/07/17 09:11 Dose: 100 mg Enoxaparin Sodium (Lovenox) 40 mg SUB-Q QDAY [facility] Last Admin: 08/07/17 09:29 Dose: 40 mg Famotidine (Pepcid) 20 mg PO BID [facility] Last Admin: 08/07/17 09:15 Dose: 20 mg Furosemide (Lasix) 40 mg IV 0600,1800 [facility] Last Admin: 08/07/17 06:35 Dose: 40 mg Hydralazine HCl (Apresoline) 10 mg IV Q4HR PRN PRN Reason: Hypertension Levofloxacin/Dextrose (Levaquin 750mg/150ml) 750 mg in 150 mls @ 100 mls/hr IV Q24HR [facility] PRN Reason: Protocol Last Admin: 08/07/17 09:07 Dose: 100 mls/hr Levothyroxine Sodium (Synthroid) 150 mcg PO DAILY@0600 [facility] Last Admin: 08/07/17 06:35 Dose: 150 mcg Lisinopril (Zestril) 40 mg PO DAILY [facility] Last Admin: 08/07/17 10:12 Dose: Not Given Magnesium Hydroxide (Milk Of Magnesia) 30 ml PO Q4H PRN PRN Reason: Constipation Methylprednisolone Sodium Succinate (Solu-Medrol) 40 mg IV Q8HR [facility] Metoprolol Tartrate (Lopressor) 25 mg PO BID [facility] Last Admin: 08/07/17 09:16 Dose: 25 mg Ondansetron HCl (Zofran) 4 mg IV Q8H PRN PRN Reason: N/V unrelieved by Reglan Potassium Chloride (K-Dur) 40 meq PO QDAY [facility] Last Admin: 08/07/17 09:17 Dose: 40 meq Prasugrel (Effient) 10 mg PO QDAY [facility] Last Admin: 08/07/17 09:18 Dose: 10 mg Pravastatin Sodium (Pravachol) 20 mg PO QHS [facility] Last Admin: 08/06/17 22:10 Dose: 20 mg Senna (Senokot) 8.6 mg PO Q12HR [facility] Last Admin: 08/07/17 09:15 Dose: 8.6 mg Tramadol HCl (Ultram) 50 mg PO Q4H PRN PRN Reason: Pain Zolpidem Tartrate (Ambien) 5 mg PO QHS PRN PRN Reason: Insomnia Last Admin: 08/07/17 04:37 Dose: 5 mg Past History Past Medical History: arthritis, CAD, diabetes, GERD, hypertension, hyperlipidemia, hypothyroidism Past Surgical History: cholecystectomy, , total hip replacement Social history: lives with family, full code. denies: smoking, alcohol abuse, prescription drug abuse, IV drug use Family history: diabetes, hypertension Medications and Allergies Allergies Allergy/AdvReac Type Severity Reaction Status Date / Time codeine Allergy Itching Verified 05/26/14 19:56 shellfish derived Allergy Itching Verified 01/25/15 09:27 Home Medications Medication Instructions Recorded Confirmed Last Taken Type Levothyroxine [Synthroid] 150 mcg PO DAILY 05/28/14 08/06/17 Unknown History Lisinopril/Hydrochlorothiazide 1 tab PO DAILY 05/28/14 08/06/17 Unknown History [Zestoretic 20-25 mg] Aspirin EC [Aspirin Enteric Coated 325 mg PO QDAY #30 tablet 05/30/14 08/06/17 Unknown Rx TAB] Metoprolol [Lopressor TAB] 25 mg PO BID #60 tablet 05/30/14 08/06/17 Unknown Rx Prasugrel [Effient] 10 mg PO QDAY #30 tablet 05/30/14 08/06/17 Unknown Rx Simvastatin [Zocor TAB] 10 mg PO QHS #30 tablet 05/30/14 08/06/17 Unknown Rx ALPRAZolam [Xanax TAB] 1 mg PO QHS 01/25/15 08/06/17 Unknown History Amlodipine Besylate/Benazepril 1 cap PO DAILY 01/25/15 08/06/17 Unknown History [amLODIPine-Benazepril 10/40 mg] Ciprofloxacin HCl [Cipro] 500 mg PO BID 01/25/15 08/06/17 Unknown History Cyclobenzaprine HCl [Flexeril 5mg] 5 mg PO Q8HR PRN #20 tablet 01/25/15 Unknown Rx HYDROcodone/APAP 5-325 [[place] 1 each PO Q6HR PRN #20 tablet 01/25/15 08/06/17 Unknown Rx 5/325] Ibuprofen [Motrin] 600 mg PO Q8H PRN #30 tablet 01/25/15 08/06/17 Unknown Rx Tramadol HCl [traMADol] 50 mg PO Q4H PRN 01/25/15 08/06/17 Unknown History Active Meds: Active Medications Acetaminophen (Tylenol) 650 mg PO Q4H PRN PRN Reason: Pain MILD(1-3)/Fever >100.5/SYED Albuterol (Proventil) 2.5 mg IH Q4HRT PRN PRN Reason: Shortness Of Breath Albuterol/Ipratropium (Duoneb *Not For Prn Use*) 1 ampul IH Q6HRT [facility] Last Admin: 08/07/17 13:06 Dose: 1 ampul Amlodipine Besylate (Norvasc) 10 mg PO DAILY [facility] Last Admin: 08/07/17 10:11 Dose: Not Given Aspirin (Ecotrin) 325 mg PO QDAY [facility] Last Admin: 08/07/17 09:31 Dose: 325 mg Bisacodyl (Dulcolax) 10 mg [place] QDAY PRN PRN Reason: Constipation unrelieved by MOM Docusate Sodium (Colace) 100 mg PO BID [facility] Last Admin: 08/07/17 09:11 Dose: 100 mg Enoxaparin Sodium (Lovenox) 40 mg SUB-Q QDAY [facility] Last Admin: 08/07/17 09:29 Dose: 40 mg Famotidine (Pepcid) 20 mg PO BID [facility] Last Admin: 08/07/17 09:15 Dose: 20 mg Furosemide (Lasix) 40 mg IV 0600,1800 [facility] Last Admin: 08/07/17 06:35 Dose: 40 mg Hydralazine HCl (Apresoline) 10 mg IV Q4HR PRN PRN Reason: Hypertension Levofloxacin/Dextrose (Levaquin 750mg/150ml) 750 mg in 150 mls @ 100 mls/hr IV Q24HR [facility] PRN Reason: Protocol Last Admin: 08/07/17 09:07 Dose: 100 mls/hr Levothyroxine Sodium (Synthroid) 150 mcg PO DAILY@0600 [facility] Last Admin: 08/07/17 06:35 Dose: 150 mcg Lisinopril (Zestril) 40 mg PO DAILY [facility] Last Admin: 08/07/17 10:12 Dose: Not Given Magnesium Hydroxide (Milk Of Magnesia) 30 ml PO Q4H PRN PRN Reason: Constipation Methylprednisolone Sodium Succinate (Solu-Medrol) 40 mg IV Q8HR [facility] Metoprolol Tartrate (Lopressor) 25 mg PO BID [facility] Last Admin: 08/07/17 09:16 Dose: 25 mg Ondansetron HCl (Zofran) 4 mg IV Q8H PRN PRN Reason: N/V unrelieved by Reglan Potassium Chloride (K-Dur) 40 meq PO QDAY [facility] Last Admin: 08/07/17 09:17 Dose: 40 meq Prasugrel (Effient) 10 mg PO QDAY [facility] Last Admin: 08/07/17 09:18 Dose: 10 mg Pravastatin Sodium (Pravachol) 20 mg PO QHS [facility] Last Admin: 08/06/17 22:10 Dose: 20 mg Senna (Senokot) 8.6 mg PO Q12HR [facility] Last Admin: 08/07/17 09:15 Dose: 8.6 mg Tramadol HCl (Ultram) 50 mg PO Q4H PRN PRN Reason: Pain Zolpidem Tartrate (Ambien) 5 mg PO QHS PRN PRN Reason: Insomnia Last Admin: 08/07/17 04:37 Dose: 5 mg Review of Systems All systems: negative Physical Examination Vital signs: Vital Signs Temp Pulse Resp BP Pulse Ox 98.5 F 85 20 161/85 96 08/05/17 20:52 08/05/17 20:52 08/05/17 20:52 08/05/17 20:52 08/05/17 20:52 General appearance: no acute distress, alert, other (obese) Eyes: non-icteric ENT: oropharynx moist Neck: supple Effort: normal Ascultation: Bilateral: wheezes Cardiovascular: regular rate and rhythm (no mrg) Gastrointestinal: normoactive bowel sounds, soft, non-tender, non-distended Integumentary: normal Extremities: no cyanosis, no edema, pink and warm Musculoskeletal: no deformities normal mental status, non-focal exam, CN II-XII normal mood appropriate, affect normal Results - Laboratory Findings CBC and BMP: 08/06/17 06:03 08/07/17 05:19 PT/INR, D-dimer PT 13.4 Sec. (12.2-14.9) 08/05/17 22:56 INR 0.97 (0.87-1.13) 08/05/17 22:56 D-Dimer 1438.48 ng/mlDDU (0-234) H 08/05/17 22:56 Abnormal lab findings: Abnormal Labs 08/05/17 08/05/17 08/05/17 22:08 22:45 22:56 Lymph % (Auto) 5.4 L Lymph # 0.3 L Seg Neutrophils % 89.2 H Seg Neuts % (Manual) Lymphocytes % (Manual) Lymphocytes # (Manual) D-Dimer Potassium 3.0 L Chloride 89.3 L Carbon Dioxide BUN 5 L Creatinine Glucose 117 H POC Glucose 115 H Calcium 8.1 L Total Bilirubin 2.00 H Total Creatine Kinase Albumin Cholesterol LDL Cholesterol Direct TSH Free T4 Urine WBC (Auto) U Epithel Cells (Auto) 08/05/17 08/05/17 08/05/17 22:56 23:35 Unknown Lymph % (Auto) Lymph # Seg Neutrophils % Seg Neuts % (Manual) Lymphocytes % (Manual) Lymphocytes # (Manual) D-Dimer 1438.48 H Potassium Chloride Carbon Dioxide BUN Creatinine Glucose POC Glucose Calcium Total Bilirubin Total Creatine Kinase Albumin Cholesterol 345 H LDL Cholesterol Direct 275 H TSH Free T4 Urine WBC (Auto) 8.0 H U Epithel Cells (Auto) 20.0 H 08/06/17 08/06/17 08/06/17 06:03 06:03 06:03 Lymph % (Auto) Lymph # Seg Neutrophils % Seg Neuts % (Manual) 90.0 H Lymphocytes % (Manual) 8.0 L Lymphocytes # (Manual) 0.4 L D-Dimer Potassium 2.5 L* Chloride 88.8 L Carbon Dioxide 20 L BUN 5 L Creatinine 0.6 L Glucose 151 H POC Glucose Calcium 8.1 L Total Bilirubin 1.80 H Total Creatine Kinase 419 H Albumin 3.8 L Cholesterol LDL Cholesterol Direct TSH Free T4 Urine WBC (Auto) U Epithel Cells (Auto) 08/06/17 08/06/17 08/06/17 06:03 07:28 11:44 Lymph % (Auto) Lymph # Seg Neutrophils % Seg Neuts % (Manual) Lymphocytes % (Manual) Lymphocytes # (Manual) D-Dimer Potassium Chloride Carbon Dioxide BUN Creatinine Glucose POC Glucose 145 H 132 H Calcium Total Bilirubin Total Creatine Kinase Albumin Cholesterol LDL Cholesterol Direct TSH 29.780 H Free T4 0.10 L Urine WBC (Auto) U Epithel Cells (Auto) 08/06/17 08/06/17 08/06/17 13:07 16:24 23:18 Lymph % (Auto) Lymph # Seg Neutrophils % Seg Neuts % (Manual) Lymphocytes % (Manual) Lymphocytes # (Manual) D-Dimer Potassium Chloride Carbon Dioxide BUN Creatinine Glucose POC Glucose 173 H 175 H Calcium Total Bilirubin Total Creatine Kinase 382 H Albumin Cholesterol LDL Cholesterol Direct TSH Free T4 Urine WBC (Auto) U Epithel Cells (Auto) 08/06/17 08/07/17 08/07/17 Unknown 05:19 07:42 Lymph % (Auto) Lymph # Seg Neutrophils % Seg Neuts % (Manual) Lymphocytes % (Manual) Lymphocytes # (Manual) D-Dimer Potassium Chloride 93.8 L Carbon Dioxide BUN 4 L Creatinine Glucose 144 H POC Glucose 109 H Calcium 7.7 L Total Bilirubin Total Creatine Kinase 396 H Albumin Cholesterol LDL Cholesterol Direct TSH Free T4 Urine WBC (Auto) U Epithel Cells (Auto) 08/07/17 11:05 Lymph % (Auto) Lymph # Seg Neutrophils % Seg Neuts % (Manual) Lymphocytes % (Manual) Lymphocytes # (Manual) D-Dimer Potassium Chloride Carbon Dioxide BUN Creatinine Glucose POC Glucose 132 H Calcium Total Bilirubin Total Creatine Kinase Albumin Cholesterol LDL Cholesterol Direct TSH Free T4 Urine WBC (Auto) U Epithel Cells (Auto) - Diagnostic Findings Chest x-ray: report reviewed, image reviewed CT scan - chest: report reviewed, image reviewed Assessment and Plan Imp: 1. Probable RLL pneumonia 2. Small R effusion 3. ? COPD with exac. 4. Acute respiratory failure, hypoxia 5. Suspect MAIDA +/- OHS 6. Obesity 7. Atelectasis 8. Dementia Rec: 1. Cont. Levaquin 2. ST eval. to exclude aspiration given dementia and RLL findings 3. Bronchodilators 4. Add brief course of Solumedrol 5. Agree with Lasix 6. Needs outpatient PFTs and PSG 7. ABG today 8. Further plans pending clinical course Plan of care reviewed with pt., she understands/agrees Thanks kindly for the consult. Will follow with you.
[2017-08-07] MEDS: PRAVACHOL PO SCH (22:38)
[2017-08-07] MEDS: ZOFRAN IV PRN (22:45)
[2017-08-08] MEDS: DUONEB *Not for PRN Use IH SCH ×4 (03:11→20:25)
[2017-08-08] MEDS: SYNTHROID PO SCH (06:42)
[2017-08-08] MEDS: LASIX IV SCH ×2 (06:42→17:48)
--- NOTE | 2017-08-08 08:10 | Progress Note ---
Assessment and Plan Assessment and plan: 67 year old female who presented to the ER for altered mental status and confusion, patient has dementia, was not taking her medications. Patient lost family members and is depressed Acute Metabolic encephalopathy - likely multifactorial worsening dementia plus severe depression, plus severe hypothyroidism Acute respiratory failure with hypoxia - PE workup is negative Pneumonia - Suspected right lower lobe pneumonia, small right lower lobe pleural effusion - Continue Levaquin COPD exacerbation - Pulmonary consult, continue nebs, steroids Systolic CHF with exacerbation - Echo shows EF of 40%, continue lasix. - cardiology consult appreciated - Recommend MP test before discharge Major Depression - mental health consulted on 08/06/2017 but didn't evaluate the patient Diabetes mellitus type 2: continue SSI - A1c is 5.2 Hypothyroidism - Patient started on levothyroxine Hypokalemia: - Repleted, we'll check BMP - Magnesium level is within normal limits Severe malnutrition - coremaker consulted, encouraged to increase PO intake Hyperlipidemia - On statin DVT prophylaxis - Lovenox Disposition - Need mental health evaluation and MP before discharge History Interval history: Patient was seen and evaluated this morning, No nursing issues overnight. Patient still looks depressed. I have discussed with her daughter about the management plan. Hospitalist Physical - Physical exam Narrative exam: Not in cardiopulmonary distress. The patient appeared well nourished and normally developed. Vital signs as documented. Head exam is unremarkable. No scleral icterus . Neck is without jugular venous distension, thyromegaly, or carotid bruits. Lungs are clear to auscultation. Cardiac exam reveals regular rate and Rhythm. First and second heart sounds normal. No murmurs, rubs or gallops. Abdominal exam reveals normal bowel sounds, no masses, no organomegaly and no aortic enlargement. Extremities are nonedematous and both femoral and pedal pulses are normal. SENIOR UNDERWRITING ASSISTANT: Alert and oriented 3. No focal weakness. Psych: depressed - Constitutional Vitals: Temp Pulse Resp BP Pulse Ox 99.0 F 110 H 18 104/68 95 08/08/17 07:29 08/08/17 07:29 08/08/17 07:29 08/08/17 07:29 08/08/17 07:29 General appearance: Present: no acute distress, disheveled, other (appears chronically ill) Results - Labs CBC & Chem 7: 08/06/17 06:03 08/08/17 09:10 Labs: Laboratory Last Values WBC 5.6 K/mm3 (4.5-11.0) 08/06/17 06:03 RBC 3.94 M/mm3 (3.65-5.03) 08/06/17 06:03 Hgb 11.1 gm/dl (10.1-14.3) 08/06/17 06:03 Hct 33.9 % (30.3-42.9) 08/06/17 06:03 MCV 86 fl (79-97) 08/06/17 06:03 MCH 28 pg (28-32) 08/06/17 06:03 MCHC 33 % (30-34) 08/06/17 06:03 RDW 15.0 % (13.2-15.2) 08/06/17 06:03 Plt Count 323 K/mm3 (140-440) 08/06/17 06:03 Lymph % (Auto) 5.4 % (13.4-35.0) L 08/05/17 22:56 [place] % (Auto) 4.5 % (0.0-7.3) 08/05/17 22:56 Eos % (Auto) 0.3 % (0.0-4.3) 08/05/17 22:56 Baso % (Auto) 0.6 % (0.0-1.8) 08/05/17 22:56 Lymph # 0.3 K/mm3 (1.2-5.4) L 08/05/17 22:56 [place] # 0.2 K/mm3 (0.0-0.8) 08/05/17 22:56 Eos # 0.0 K/mm3 (0.0-0.4) 08/05/17 22:56 Baso # 0.0 K/mm3 (0.0-0.1) 08/05/17 22:56 Add Manual Diff Complete 08/06/17 06:03 Total Counted 100 08/06/17 06:03 Seg Neutrophils % Electronic Maintenance Supervisor 08/06/17 06:03 Seg Neuts % (Manual) 90.0 % (40.0-70.0) H 08/06/17 06:03 Band Neutrophils % 1.0 % 08/06/17 06:03 Lymphocytes % (Manual) 8.0 % (13.4-35.0) L 08/06/17 06:03 Reactive Lymphs % (Man) 0 % 08/06/17 06:03 Monocytes % (Manual) 1.0 % (0.0-7.3) 08/06/17 06:03 Eosinophils % (Manual) 0 % (0.0-4.3) 08/06/17 06:03 Basophils % (Manual) 0 % (0.0-1.8) 08/06/17 06:03 Metamyelocytes % 0 % 08/06/17 06:03 Myelocytes % 0 % 08/06/17 06:03 Promyelocytes % 0 % 08/06/17 06:03 Blast Cells % 0 % 08/06/17 06:03 Nucleated RBC % Not Reportable 08/06/17 06:03 Seg Neutrophils # 4.9 K/mm3 (1.8-7.7) 08/05/17 22:56 Seg Neutrophils # Man 5.0 K/mm3 (1.8-7.7) 08/06/17 06:03 Band Neutrophils # 0.1 K/mm3 08/06/17 06:03 Lymphocytes # (Manual) 0.4 K/mm3 (1.2-5.4) L 08/06/17 06:03 Abs React Lymphs (Man) 0.0 K/mm3 08/06/17 06:03 Monocytes # (Manual) 0.1 K/mm3 (0.0-0.8) 08/06/17 06:03 Eosinophils # (Manual) 0.0 K/mm3 (0.0-0.4) 08/06/17 06:03 Basophils # (Manual) 0.0 K/mm3 (0.0-0.1) 08/06/17 06:03 Metamyelocytes # 0.0 K/mm3 08/06/17 06:03 Myelocytes # 0.0 K/mm3 08/06/17 06:03 Promyelocytes # 0.0 K/mm3 08/06/17 06:03 Blast Cells # 0.0 K/mm3 08/06/17 06:03 WBC Morphology Not Reportable 08/06/17 06:03 Hypersegmented Neuts Not Reportable 08/06/17 06:03 Hyposegmented Neuts Not Reportable 08/06/17 06:03 Hypogranular Neuts Not Reportable 08/06/17 06:03 Smudge Cells Not Reportable 08/06/17 06:03 Toxic Granulation Not Reportable 08/06/17 06:03 Toxic Vacuolation Not Reportable 08/06/17 06:03 Dohle Bodies Not Reportable 08/06/17 06:03 Pelger-Huet Anomaly Not Reportable 08/06/17 06:03 Kemar Rods Not Reportable 08/06/17 06:03 Platelet Estimate Not Reportable 08/06/17 06:03 Clumped Platelets Not Reportable 08/06/17 06:03 Plt Clumps, EDTA Not Reportable 08/06/17 06:03 Large Platelets Not Reportable 08/06/17 06:03 Giant Platelets Not Reportable 08/06/17 06:03 Platelet Satelliting Not Reportable 08/06/17 06:03 Plt Morphology Comment Not Reportable 08/06/17 06:03 RBC Morphology Not Reportable 08/06/17 06:03 Dimorphic RBCs Not Reportable 08/06/17 06:03 Polychromasia Not Reportable 08/06/17 06:03 Hypochromasia Not Reportable 08/06/17 06:03 Poikilocytosis Not Reportable 08/06/17 06:03 Anisocytosis 1+ 08/06/17 06:03 Microcytosis Not Reportable 08/06/17 06:03 Macrocytosis Not Reportable 08/06/17 06:03 Spherocytes Not Reportable 08/06/17 06:03 Pappenheimer Bodies Not Reportable 08/06/17 06:03 Sickle Cells Not Reportable 08/06/17 06:03 Target Cells Not Reportable 08/06/17 06:03 Tear Drop Cells Not Reportable 08/06/17 06:03 Ovalocytes 1+ 08/06/17 06:03 Helmet Cells Not Reportable 08/06/17 06:03 [place] Bodies Not Reportable 08/06/17 06:03 [place] Rings Not Reportable 08/06/17 06:03 [place] Cells Not Reportable 08/06/17 06:03 Bite Cells Not Reportable 08/06/17 06:03 Crenated Cell Not Reportable 08/06/17 06:03 Elliptocytes 1+ 08/06/17 06:03 Acanthocytes (Spur) Not Reportable 08/06/17 06:03 Rouleaux Not Reportable 08/06/17 06:03 Hemoglobin C Crystals Not Reportable 08/06/17 06:03 Schistocytes Not Reportable 08/06/17 06:03 Malaria parasites Not Reportable 08/06/17 06:03 Derek Bodies Not Reportable 08/06/17 06:03 Hem Pathologist Commnt No 08/06/17 06:03 PT 13.4 Sec. (12.2-14.9) 08/05/17 22:56 INR 0.97 (0.87-1.13) 08/05/17 22:56 APTT 27.5 Sec. (24.2-36.6) 08/05/17 22:56 D-Dimer 1438.48 ng/mlDDU (0-234) H 08/05/17 22:56 POC ABG pH 7.511 (7.35-7.45) H 08/07/17 16:41 POC ABG pCO2 38.4 (35-45) 08/07/17 16:41 POC ABG pO2 78 (80-105) L 08/07/17 16:41 POC ABG HCO3 30.7 08/07/17 16:41 POC ABG Total CO2 32 08/07/17 16:41 POC ABG O2 Sat 97 08/07/17 16:41 POC ABG Base Excess 8 08/07/17 16:41 FiO2 1.5 % 08/07/17 16:41 Sodium 138 mmol/L (137-145) 08/07/17 05:19 Potassium TNR 08/07/17 05:19 Chloride 93.8 mmol/L (98-107) L 08/07/17 05:19 Carbon Dioxide 28 mmol/L (22-30) D 08/07/17 05:19 Anion Gap 19 mmol/L 08/07/17 05:19 BUN 4 mg/dL (7-17) L 08/07/17 05:19 Creatinine 0.7 mg/dL (0.7-1.2) 08/07/17 05:19 Estimated GFR > 60 ml/min 08/07/17 05:19 BUN/Creatinine Ratio 6 % 08/07/17 05:19 Glucose 144 mg/dL (65-100) H 08/07/17 05:19 POC Glucose 191 (70-105) H 08/07/17 22:14 Hemoglobin A1c 5.2 % (4-6) 08/05/17 Unknown Lactic Acid 1.30 mmol/L (0.7-2.0) 08/05/17 22:56 Calcium 7.7 mg/dL (8.4-10.2) L 08/07/17 05:19 Magnesium 1.90 mg/dL (1.7-2.3) 08/06/17 06:03 Total Bilirubin 1.80 mg/dL (0.1-1.2) H 08/06/17 06:03 AST 19 units/L (5-40) 08/06/17 06:03 ALT 10 units/L (7-56) 08/06/17 06:03 Alkaline Phosphatase 66 units/L (35-129) 08/06/17 06:03 Total Creatine Kinase 396 units/L (30-135) H 08/06/17 Unknown CK-MB (CK-2) 2.1 ng/mL (0.0-4.0) 08/06/17 Unknown CK-MB (CK-2) Rel Index 0.5 (0-4) 08/06/17 Unknown Troponin T 0.028 ng/mL (0.00-0.029) 08/05/17 22:08 Total Protein 8.0 g/dL (6.3-8.2) 08/06/17 06:03 Albumin 3.8 g/dL (3.9-5) L 08/06/17 06:03 Albumin/Globulin Ratio 0.9 % 08/06/17 06:03 Triglycerides 138 mg/dL (2-149) 08/05/17 23:35 Cholesterol 345 mg/dL (50-199) H 08/05/17 23:35 LDL Cholesterol Direct 275 mg/dL (50-130) H 08/05/17 23:35 HDL Cholesterol 43 mg/dL (40-59) 08/05/17 23:35 Cholesterol/HDL Ratio 8.02 % 08/05/17 23:35 TSH 29.780 mlU/mL (0.270-4.200) H 08/06/17 06:03 Free T4 0.10 ng/dL (0.76-1.46) L 08/06/17 06:03 Urine Color Marie (Yellow) 08/05/17 Unknown Urine Turbidity Slightly-cloudy (Clear) 08/05/17 Unknown Urine pH 6.0 (5.0-7.0) 08/05/17 Unknown Ur Specific [place] 1.018 (1.003-1.030) 08/05/17 Unknown Urine Protein 30 mg/dl mg/dL (Negative) 08/05/17 Unknown Urine Glucose (UA) Neg mg/dL (Negative) 08/05/17 Unknown Urine Ketones 80 mg/dL (Negative) 08/05/17 Unknown Urine Blood Neg (Negative) 08/05/17 Unknown Urine Nitrite Neg (Negative) 08/05/17 Unknown Urine Bilirubin Neg (Negative) 08/05/17 Unknown Urine Urobilinogen 4.0 mg/dL (<2.0) 08/05/17 Unknown Ur Leukocyte Esterase Sm (Negative) 08/05/17 Unknown Urine WBC (Auto) 8.0 /HPF (0.0-6.0) H 08/05/17 Unknown Urine RBC (Auto) 6.0 /HPF (0.0-6.0) 08/05/17 Unknown U Epithel Cells (Auto) 20.0 /HPF (0-13.0) H 08/05/17 Unknown Urine Bacteria (Auto) 1+ /HPF (Negative) 08/05/17 Unknown Urine Mucus Few /HPF 08/05/17 Unknown Urine Opiates Screen Presumptive negative 08/05/17 Unknown Urine Methadone Screen Presumptive negative 08/05/17 Unknown Ur Barbiturates Screen Presumptive negative 08/05/17 Unknown Ur Phencyclidine Scrn Presumptive negative 08/05/17 Unknown Ur Amphetamines Screen Presumptive negative 08/05/17 Unknown U Benzodiazepines Scrn Presumptive negative 08/05/17 Unknown Urine Cocaine Screen Presumptive negative 08/05/17 Unknown U Marijuana (THC) Screen Presumptive positive 08/05/17 Unknown Drugs of Abuse Note Disclamer 08/05/17 Unknown
[2017-08-08] MEDS: LEVAQUIN 750MG/150ML 750 MG/150 ML BAG IV SCH (09:10)
[2017-08-08] MEDS: LOVENOX SUB-Q SCH (09:11)
[2017-08-08] MEDS: EFFIENT PO SCH (09:11)
[2017-08-08] MEDS: ECOTRIN PO SCH (09:12)
[2017-08-08] MEDS: COLACE PO SCH ×2 (09:12→21:28)
[2017-08-08] MEDS: PEPCID PO SCH ×2 (09:12→21:29)
[2017-08-08] MEDS: SENOKOT PO SCH ×2 (09:13→21:28)
[2017-08-08] MEDS: LOPRESSOR PO SCH ×2 (09:13→21:29)
[2017-08-08] MEDS: K-DUR PO SCH (09:15)
[2017-08-08] MEDS: ZESTRIL PO SCH (09:17)
[2017-08-08] MEDS: NORVASC PO SCH (09:19)
[2017-08-08 10:41] LABS: BUN/Creatinine Ratio 6; Blood Urea Nitrogen 6 mg/dL (7-17); Hemolysis Index 22
--- NOTE | 2017-08-08 11:40 | Progress Note ---
Assessment and Plan - Patient Problems (1) Coronary artery disease Current Visit: Yes Status: Acute Plan to address problem: Coronary artery disease is stable and asymptomatic, continue medical therapy and risk factor modification. (2) Cardiomyopathy Current Visit: Yes Status: Acute Plan to address problem: Mild to moderate severity cardiomyopathy with left ventricular ejection fraction 40-45%. Continue medical management, no clinical or x-ray evidence of heart failure. Subjective Date of service: 08/08/17 Interval history: There are no new cardiac complaints. The patient was admitted with altered mental status, severe depression, deconditioned physical status and severe hypothyroidism with a TSH level of 29. Cardiac status is asymptomatic. ECG is benign. Chest x-ray shows a small right pleural effusion with atelectasis in the right base but no evidence of heart failure or fluid overload. There is some underlying history of coronary artery disease, with drug-eluting stent to the first obtuse marginal 3 years ago , and a mild to moderate severity cardiomyopathy. Echocardiogram on this presentation reported an ejection fraction 40-45%. Objective Vital Signs Temp Pulse Pulse Pulse Resp Resp BP 08/08/17 10:00 104 H 08/08/17 09:27 107 H 18 08/08/17 09:19 104 H 116/73 08/08/17 09:17 104 H 116/73 08/08/17 09:15 08/08/17 09:13 104 H 107 H 16 116/73 08/08/17 07:29 99.0 F 110 H 18 104/68 08/08/17 04:48 99.0 F 111 H 19 111/79 08/08/17 03:28 109 H 18 08/08/17 03:12 99 H 18 08/07/17 22:39 104 H 106/69 08/07/17 22:00 105 H 104 H 18 08/07/17 19:54 98.0 F 109 H 20 106/69 08/07/17 19:26 101 H 18 08/07/17 19:22 08/07/17 14:41 98.7 F 104 H 18 112/71 08/07/17 13:13 102 H 20 08/07/17 13:05 98 H 20 Pulse Ox 08/08/17 10:00 08/08/17 09:27 08/08/17 09:19 08/08/17 09:17 08/08/17 09:15 95 08/08/17 09:13 08/08/17 07:29 95 08/08/17 04:48 97 08/08/17 03:28 08/08/17 03:12 08/07/17 22:39 08/07/17 22:00 08/07/17 19:54 96 08/07/17 19:26 08/07/17 19:22 94 08/07/17 14:41 97 08/07/17 13:13 08/07/17 13:05 - Physical Examination General: No Apparent Distress HEENT: Positive: PERRL Neck: Positive: neck supple Cardiac: Positive: Reg Rate and Rhythm Lungs: Positive: Decreased Breath Sounds Neuro: Positive: Weakness Abdomen: Positive: Soft Skin: Positive: Clear Extremities: Absent: edema - Labs and Meds Comprehensive Metabolic Panel 08/08/17 Range/Units 09:10 Sodium 140 (137-145) mmol/L Potassium 2.7 L* (3.6-5.0) mmol/L Chloride 90.9 L (98-107) mmol/L Carbon Dioxide 28 (22-30) mmol/L BUN 6 L (7-17) mg/dL Creatinine 1.0 (0.7-1.2) mg/dL Glucose 166 H (65-100) mg/dL Calcium 8.0 L (8.4-10.2) mg/dL
[2017-08-08] MEDS: KCL 10MEQ/100ML 10 MEQ/100 ML BAG IV SCH ×8 (12:33→23:24)
[2017-08-08] MEDS: ZOFRAN IV PRN (16:22)
--- NOTE | 2017-08-08 17:27 | Progress Note ---
Assessment and Plan 1. Probable RLL pneumonia 2. Small R effusion 3. ? COPD with exac. 4. Acute respiratory failure, hypoxia 5. Suspect MAIDA +/- OHS 6. Obesity 7. Atelectasis 8. Dementia 9. Hypokalemia. Needs replacement. Recommendations Potassium rider 40 mEq Hold diuretics Serial potassium monitoring Continue with Albuterol 2.5 milligram nebulizations every 4-6 hours with or without ipratropium, for chest congestion. Solu-Medrol 40-60 mg IV every 6-8 hours Oxygen support via nasal cannula or mask to maintain oximetry over 92% Subjective Date of service: 08/08/17 Interval history: Reports some cough with nausea this morning. Objective Vital Signs - 12hr 08/08/17 08/08/17 08/08/17 07:29 09:13 09:15 Temperature 99.0 F Pulse Rate 110 H 104 H Pulse Rate [ 107 H Anterior Bilateral Throughout] Pulse Rate [ From Monitor] Respiratory 18 Rate Respiratory 16 Rate [Anterior Bilateral Throughout] Blood Pressure 104/68 116/73 O2 Sat by Pulse 95 95 Oximetry 08/08/17 08/08/17 08/08/17 09:17 09:19 09:27 Temperature Pulse Rate 104 H 104 H Pulse Rate [ 107 H Anterior Bilateral Throughout] Pulse Rate [ From Monitor] Respiratory Rate Respiratory 18 Rate [Anterior Bilateral Throughout] Blood Pressure 116/73 116/73 O2 Sat by Pulse Oximetry 08/08/17 08/08/17 08/08/17 10:00 12:56 15:01 Temperature 98.8 F Pulse Rate 102 H 98 H Pulse Rate [ 94 H Anterior Bilateral Throughout] Pulse Rate [ 104 H From Monitor] Respiratory 18 Rate Respiratory 18 Rate [Anterior Bilateral Throughout] Blood Pressure 111/75 O2 Sat by Pulse 96 Oximetry 08/08/17 15:15 Temperature Pulse Rate Pulse Rate [ 101 H Anterior Bilateral Throughout] Pulse Rate [ From Monitor] Respiratory Rate Respiratory 18 Rate [Anterior Bilateral Throughout] Blood Pressure O2 Sat by Pulse Oximetry Constitutional: no acute distress, alert, other (obese) Eyes: non-icteric ENT: oropharynx moist Neck: supple, no JVD Effort: normal Ascultation: Bilateral: rhonchi (bibasilar rhonchi) Cardiovascular: regular rate and rhythm Gastrointestinal: normoactive bowel sounds, soft, non-tender, non-distended Integumentary: normal Extremities: no cyanosis, no edema, pink and warm Neurologic: normal mental status, non-focal exam, CN II-XII normal Psychiatric: mood appropriate, affect normal CBC and BMP: 08/06/17 06:03 08/08/17 09:10 ABG, PT/INR, D-dimer: ABG POC ABG pH 7.511 (7.35-7.45) H 08/07/17 16:41 POC ABG pCO2 38.4 (35-45) 08/07/17 16:41 POC ABG pO2 78 (80-105) L 08/07/17 16:41 POC ABG HCO3 30.7 08/07/17 16:41 POC ABG Total CO2 32 08/07/17 16:41 POC ABG O2 Sat 97 08/07/17 16:41 PT/INR, D-dimer PT 13.4 Sec. (12.2-14.9) 08/05/17 22:56 INR 0.97 (0.87-1.13) 08/05/17 22:56 D-Dimer 1438.48 ng/mlDDU (0-234) H 08/05/17 22:56 Abnormal lab findings: Abnormal Labs 08/05/17 08/05/17 08/05/17 22:08 22:45 22:56 Lymph % (Auto) 5.4 L Lymph # 0.3 L Seg Neutrophils % 89.2 H Seg Neuts % (Manual) Lymphocytes % (Manual) Lymphocytes # (Manual) D-Dimer POC ABG pH POC ABG pO2 Potassium 3.0 L Chloride 89.3 L Carbon Dioxide BUN 5 L Creatinine Glucose 117 H POC Glucose 115 H Calcium 8.1 L Total Bilirubin 2.00 H Total Creatine Kinase Albumin Cholesterol LDL Cholesterol Direct TSH Free T4 Urine WBC (Auto) U Epithel Cells (Auto) 08/05/17 08/05/17 08/05/17 22:56 23:35 Unknown Lymph % (Auto) Lymph # Seg Neutrophils % Seg Neuts % (Manual) Lymphocytes % (Manual) Lymphocytes # (Manual) D-Dimer 1438.48 H POC ABG pH POC ABG pO2 Potassium Chloride Carbon Dioxide BUN Creatinine Glucose POC Glucose Calcium Total Bilirubin Total Creatine Kinase Albumin Cholesterol 345 H LDL Cholesterol Direct 275 H TSH Free T4 Urine WBC (Auto) 8.0 H U Epithel Cells (Auto) 20.0 H 08/06/17 08/06/17 08/06/17 06:03 06:03 06:03 Lymph % (Auto) Lymph # Seg Neutrophils % Seg Neuts % (Manual) 90.0 H Lymphocytes % (Manual) 8.0 L Lymphocytes # (Manual) 0.4 L D-Dimer POC ABG pH POC ABG pO2 Potassium 2.5 L* Chloride 88.8 L Carbon Dioxide 20 L BUN 5 L Creatinine 0.6 L Glucose 151 H POC Glucose Calcium 8.1 L Total Bilirubin 1.80 H Total Creatine Kinase 419 H Albumin 3.8 L Cholesterol LDL Cholesterol Direct TSH Free T4 Urine WBC (Auto) U Epithel Cells (Auto) 08/06/17 08/06/17 08/06/17 06:03 07:28 11:44 Lymph % (Auto) Lymph # Seg Neutrophils % Seg Neuts % (Manual) Lymphocytes % (Manual) Lymphocytes # (Manual) D-Dimer POC ABG pH POC ABG pO2 Potassium Chloride Carbon Dioxide BUN Creatinine Glucose POC Glucose 145 H 132 H Calcium Total Bilirubin Total Creatine Kinase Albumin Cholesterol LDL Cholesterol Direct TSH 29.780 H Free T4 0.10 L Urine WBC (Auto) U Epithel Cells (Auto) 08/06/17 08/06/17 08/06/17 13:07 16:24 23:18 Lymph % (Auto) Lymph # Seg Neutrophils % Seg Neuts % (Manual) Lymphocytes % (Manual) Lymphocytes # (Manual) D-Dimer POC ABG pH POC ABG pO2 Potassium Chloride Carbon Dioxide BUN Creatinine Glucose POC Glucose 173 H 175 H Calcium Total Bilirubin Total Creatine Kinase 382 H Albumin Cholesterol LDL Cholesterol Direct TSH Free T4 Urine WBC (Auto) U Epithel Cells (Auto) 08/06/17 08/07/17 08/07/17 Unknown 05:19 07:42 Lymph % (Auto) Lymph # Seg Neutrophils % Seg Neuts % (Manual) Lymphocytes % (Manual) Lymphocytes # (Manual) D-Dimer POC ABG pH POC ABG pO2 Potassium Chloride 93.8 L Carbon Dioxide BUN 4 L Creatinine Glucose 144 H POC Glucose 109 H Calcium 7.7 L Total Bilirubin Total Creatine Kinase 396 H Albumin Cholesterol LDL Cholesterol Direct TSH Free T4 Urine WBC (Auto) U Epithel Cells (Auto) 08/07/17 08/07/17 08/07/17 11:05 16:40 16:41 Lymph % (Auto) Lymph # Seg Neutrophils % Seg Neuts % (Manual) Lymphocytes % (Manual) Lymphocytes # (Manual) D-Dimer POC ABG pH 7.511 H POC ABG pO2 78 L Potassium Chloride Carbon Dioxide BUN Creatinine Glucose POC Glucose 132 H 112 H Calcium Total Bilirubin Total Creatine Kinase Albumin Cholesterol LDL Cholesterol Direct TSH Free T4 Urine WBC (Auto) U Epithel Cells (Auto) 08/07/17 08/08/17 08/08/17 22:14 07:35 09:10 Lymph % (Auto) Lymph # Seg Neutrophils % Seg Neuts % (Manual) Lymphocytes % (Manual) Lymphocytes # (Manual) D-Dimer POC ABG pH POC ABG pO2 Potassium 2.7 L* Chloride 90.9 L Carbon Dioxide BUN 6 L Creatinine Glucose 166 H POC Glucose 191 H 159 H Calcium 8.0 L Total Bilirubin Total Creatine Kinase Albumin Cholesterol LDL Cholesterol Direct TSH Free T4 Urine WBC (Auto) U Epithel Cells (Auto) 08/08/17 08/08/17 11:24 16:35 Lymph % (Auto) Lymph # Seg Neutrophils % Seg Neuts % (Manual) Lymphocytes % (Manual) Lymphocytes # (Manual) D-Dimer POC ABG pH POC ABG pO2 Potassium Chloride Carbon Dioxide BUN Creatinine Glucose POC Glucose 179 H 153 H Calcium Total Bilirubin Total Creatine Kinase Albumin Cholesterol LDL Cholesterol Direct TSH Free T4 Urine WBC (Auto) U Epithel Cells (Auto)
[2017-08-08 17:50] LABS: BUN/Creatinine Ratio 7; Blood Urea Nitrogen 8 mg/dL (7-17); Calcium 7.9 mg/dL (8.4-10.2); Hemolysis Index 10
[2017-08-08] MEDS: PRAVACHOL PO SCH (21:28)
[2017-08-09] MEDS: DUONEB *Not for PRN Use IH SCH ×5 (02:00→20:58)
[2017-08-09 05:12] LABS: Hematocrit 29.9 % (30.3-42.9); Hemoglobin 10.4 gm/dl (10.1-14.3); Lymphocytes # (Auto) 0.6 K/mm3 (1.2-5.4); Lymphocytes % (Auto) 9.9 % (13.4-35.0); Mean Corpuscular HGB Conc 35 % (30-34); Mean Corpuscular Hemoglobin 30 pg (28-32); Mean Corpuscular Volume 85 fl (79-97); Monocytes # (Auto) 0.3 K/mm3 (0.0-0.8); Monocytes % (Auto) 5.1 % (0.0-7.3); Platelet Count 293 K/mm3 (140-440); Red Cell Distribution Width 14.7 % (13.2-15.2)
[2017-08-09 05:31] LABS: BUN/Creatinine Ratio 10; Blood Urea Nitrogen 11 mg/dL (7-17); Calcium 7.7 mg/dL (8.4-10.2); Hemolysis Index 5
[2017-08-09] MEDS: LASIX IV SCH (05:38)
[2017-08-09] MEDS: ZOFRAN IV PRN ×2 (05:38→14:29)
[2017-08-09] MEDS: SYNTHROID PO SCH (05:39)
--- NOTE | 2017-08-09 08:55 | Progress Note ---
Assessment and Plan Assessment and plan: 67 year old female who presented to the ER for altered mental status and confusion, patient has dementia, was not taking her medications. Patient lost family members and is depressed Acute Metabolic encephalopathy - likely multifactorial worsening dementia plus severe depression, plus severe hypothyroidism Acute respiratory failure with hypoxia - PE workup is negative Pneumonia - Suspected right lower lobe pneumonia, small right lower lobe pleural effusion - Continue Levaquin COPD exacerbation - Pulmonary consult, continue nebs, steroids Systolic CHF with exacerbation - Echo shows EF of 40% - D/C Lasix - cardiology consult appreciated - Recommend MP test before discharge Major Depression - mental health consulted on 08/06/2017 but didn't evaluate the patient Diabetes mellitus type 2: continue SSI - A1c is 5.2 Hypothyroidism - Patient started on levothyroxine Hypokalemia: - Repleted, we'll check BMP - Magnesium level is within normal limits Severe malnutrition - tower observer consulted, encouraged to increase PO intake Hyperlipidemia - On statin DVT prophylaxis - Lovenox Disposition - Need mental health evaluation and MP before discharge History Interval history: Patient was seen and evaluated this morning, No nursing issues overnight. Patient still looks depressed. Psych didn't evaluate her. Hospitalist Physical - Physical exam Narrative exam: Not in cardiopulmonary distress. The patient appeared well nourished and normally developed. Vital signs as documented. Head exam is unremarkable. No scleral icterus . Neck is without jugular venous distension, thyromegaly, or carotid bruits. Lungs are clear to auscultation. Cardiac exam reveals regular rate and Rhythm. First and second heart sounds normal. No murmurs, rubs or gallops. Abdominal exam reveals normal bowel sounds, no masses, no organomegaly and no aortic enlargement. Extremities are nonedematous and both femoral and pedal pulses are normal. [employer]: Alert and oriented 3. No focal weakness. Psych: depressed - Constitutional Vitals: Temp Pulse Resp BP Pulse Ox 98.1 F 91 H 18 112/80 97 08/09/17 03:57 08/09/17 03:57 08/09/17 03:57 08/09/17 03:57 08/09/17 03:57 General appearance: Present: no acute distress, disheveled, other (appears chronically ill) Results - Labs CBC & Chem 7: 08/09/17 04:38 08/09/17 04:38 Labs: Laboratory Last Values WBC 6.0 K/mm3 (4.5-11.0) 08/09/17 04:38 RBC 3.50 M/mm3 (3.65-5.03) L 08/09/17 04:38 Hgb 10.4 gm/dl (10.1-14.3) 08/09/17 04:38 Hct 29.9 % (30.3-42.9) L 08/09/17 04:38 MCV 85 fl (79-97) 08/09/17 04:38 MCH 30 pg (28-32) 08/09/17 04:38 MCHC 35 % (30-34) H 08/09/17 04:38 RDW 14.7 % (13.2-15.2) 08/09/17 04:38 Plt Count 293 K/mm3 (140-440) 08/09/17 04:38 Lymph % (Auto) 9.9 % (13.4-35.0) L 08/09/17 04:38 [place] % (Auto) 5.1 % (0.0-7.3) 08/09/17 04:38 Eos % (Auto) 0.0 % (0.0-4.3) 08/09/17 04:38 Baso % (Auto) 0.0 % (0.0-1.8) 08/09/17 04:38 Lymph # 0.6 K/mm3 (1.2-5.4) L 08/09/17 04:38 [place] # 0.3 K/mm3 (0.0-0.8) 08/09/17 04:38 Eos # 0.0 K/mm3 (0.0-0.4) 08/09/17 04:38 Baso # 0.0 K/mm3 (0.0-0.1) 08/09/17 04:38 Add Manual Diff Complete 08/06/17 06:03 Total Counted 100 08/06/17 06:03 Seg Neutrophils % 85.0 % (40.0-70.0) H 08/09/17 04:38 Seg Neuts % (Manual) 90.0 % (40.0-70.0) H 08/06/17 06:03 Band Neutrophils % 1.0 % 08/06/17 06:03 Lymphocytes % (Manual) 8.0 % (13.4-35.0) L 08/06/17 06:03 Reactive Lymphs % (Man) 0 % 08/06/17 06:03 Monocytes % (Manual) 1.0 % (0.0-7.3) 08/06/17 06:03 Eosinophils % (Manual) 0 % (0.0-4.3) 08/06/17 06:03 Basophils % (Manual) 0 % (0.0-1.8) 08/06/17 06:03 Metamyelocytes % 0 % 08/06/17 06:03 Myelocytes % 0 % 08/06/17 06:03 Promyelocytes % 0 % 08/06/17 06:03 Blast Cells % 0 % 08/06/17 06:03 Nucleated RBC % Not Reportable 08/06/17 06:03 Seg Neutrophils # 5.1 K/mm3 (1.8-7.7) 08/09/17 04:38 Seg Neutrophils # Man 5.0 K/mm3 (1.8-7.7) 08/06/17 06:03 Band Neutrophils # 0.1 K/mm3 08/06/17 06:03 Lymphocytes # (Manual) 0.4 K/mm3 (1.2-5.4) L 08/06/17 06:03 Abs React Lymphs (Man) 0.0 K/mm3 08/06/17 06:03 Monocytes # (Manual) 0.1 K/mm3 (0.0-0.8) 08/06/17 06:03 Eosinophils # (Manual) 0.0 K/mm3 (0.0-0.4) 08/06/17 06:03 Basophils # (Manual) 0.0 K/mm3 (0.0-0.1) 08/06/17 06:03 Metamyelocytes # 0.0 K/mm3 08/06/17 06:03 Myelocytes # 0.0 K/mm3 08/06/17 06:03 Promyelocytes # 0.0 K/mm3 08/06/17 06:03 Blast Cells # 0.0 K/mm3 08/06/17 06:03 WBC Morphology Not Reportable 08/06/17 06:03 Hypersegmented Neuts Not Reportable 08/06/17 06:03 Hyposegmented Neuts Not Reportable 08/06/17 06:03 Hypogranular Neuts Not Reportable 08/06/17 06:03 Smudge Cells Not Reportable 08/06/17 06:03 Toxic Granulation Not Reportable 08/06/17 06:03 Toxic Vacuolation Not Reportable 08/06/17 06:03 Dohle Bodies Not Reportable 08/06/17 06:03 Pelger-Huet Anomaly Not Reportable 08/06/17 06:03 Kemar Rods Not Reportable 08/06/17 06:03 Platelet Estimate Not Reportable 08/06/17 06:03 Clumped Platelets Not Reportable 08/06/17 06:03 Plt Clumps, EDTA Not Reportable 08/06/17 06:03 Large Platelets Not Reportable 08/06/17 06:03 Giant Platelets Not Reportable 08/06/17 06:03 Platelet Satelliting Not Reportable 08/06/17 06:03 Plt Morphology Comment Not Reportable 08/06/17 06:03 RBC Morphology Not Reportable 08/06/17 06:03 Dimorphic RBCs Not Reportable 08/06/17 06:03 Polychromasia Not Reportable 08/06/17 06:03 Hypochromasia Not Reportable 08/06/17 06:03 Poikilocytosis Not Reportable 08/06/17 06:03 Anisocytosis 1+ 08/06/17 06:03 Microcytosis Not Reportable 08/06/17 06:03 Macrocytosis Not Reportable 08/06/17 06:03 Spherocytes Not Reportable 08/06/17 06:03 Pappenheimer Bodies Not Reportable 08/06/17 06:03 Sickle Cells Not Reportable 08/06/17 06:03 Target Cells Not Reportable 08/06/17 06:03 Tear Drop Cells Not Reportable 08/06/17 06:03 Ovalocytes 1+ 08/06/17 06:03 Helmet Cells Not Reportable 08/06/17 06:03 [place] Bodies Not Reportable 08/06/17 06:03 [place] Rings Not Reportable 08/06/17 06:03 [place] Cells Not Reportable 08/06/17 06:03 Bite Cells Not Reportable 08/06/17 06:03 Crenated Cell Not Reportable 08/06/17 06:03 Elliptocytes 1+ 08/06/17 06:03 Acanthocytes (Spur) Not Reportable 08/06/17 06:03 Rouleaux Not Reportable 08/06/17 06:03 Hemoglobin C Crystals Not Reportable 08/06/17 06:03 Schistocytes Not Reportable 08/06/17 06:03 Malaria parasites Not Reportable 08/06/17 06:03 Derek Bodies Not Reportable 08/06/17 06:03 Hem Pathologist Commnt No 08/06/17 06:03 PT 13.4 Sec. (12.2-14.9) 08/05/17 22:56 INR 0.97 (0.87-1.13) 08/05/17 22:56 APTT 27.5 Sec. (24.2-36.6) 08/05/17 22:56 D-Dimer 1438.48 ng/mlDDU (0-234) H 08/05/17 22:56 POC ABG pH 7.511 (7.35-7.45) H 08/07/17 16:41 POC ABG pCO2 38.4 (35-45) 08/07/17 16:41 POC ABG pO2 78 (80-105) L 08/07/17 16:41 POC ABG HCO3 30.7 08/07/17 16:41 POC ABG Total CO2 32 08/07/17 16:41 POC ABG O2 Sat 97 08/07/17 16:41 POC ABG Base Excess 8 08/07/17 16:41 FiO2 1.5 % 08/07/17 16:41 Sodium 137 mmol/L (137-145) 08/09/17 04:38 Potassium 3.2 mmol/L (3.6-5.0) L 08/09/17 04:38 Chloride 90.2 mmol/L (98-107) L 08/09/17 04:38 Carbon Dioxide 28 mmol/L (22-30) 08/09/17 04:38 Anion Gap 22 mmol/L 08/09/17 04:38 BUN 11 mg/dL (7-17) 08/09/17 04:38 Creatinine 1.1 mg/dL (0.7-1.2) 08/09/17 04:38 Estimated GFR > 60 ml/min 08/09/17 04:38 BUN/Creatinine Ratio 10 % 08/09/17 04:38 Glucose 175 mg/dL (65-100) H 08/09/17 04:38 POC Glucose 150 (70-105) H 08/09/17 08:14 Hemoglobin A1c 5.2 % (4-6) 08/05/17 Unknown Lactic Acid 1.30 mmol/L (0.7-2.0) 08/05/17 22:56 Calcium 7.7 mg/dL (8.4-10.2) L 08/09/17 04:38 Magnesium 1.90 mg/dL (1.7-2.3) 08/06/17 06:03 Total Bilirubin 1.80 mg/dL (0.1-1.2) H 08/06/17 06:03 AST 19 units/L (5-40) 08/06/17 06:03 ALT 10 units/L (7-56) 08/06/17 06:03 Alkaline Phosphatase 66 units/L (35-129) 08/06/17 06:03 Total Creatine Kinase 396 units/L (30-135) H 08/06/17 Unknown CK-MB (CK-2) 2.1 ng/mL (0.0-4.0) 08/06/17 Unknown CK-MB (CK-2) Rel Index 0.5 (0-4) 08/06/17 Unknown Troponin T 0.028 ng/mL (0.00-0.029) 08/05/17 22:08 Total Protein 8.0 g/dL (6.3-8.2) 08/06/17 06:03 Albumin 3.8 g/dL (3.9-5) L 08/06/17 06:03 Albumin/Globulin Ratio 0.9 % 08/06/17 06:03 Triglycerides 138 mg/dL (2-149) 08/05/17 23:35 Cholesterol 345 mg/dL (50-199) H 08/05/17 23:35 LDL Cholesterol Direct 275 mg/dL (50-130) H 08/05/17 23:35 HDL Cholesterol 43 mg/dL (40-59) 08/05/17 23:35 Cholesterol/HDL Ratio 8.02 % 08/05/17 23:35 TSH 29.780 mlU/mL (0.270-4.200) H 08/06/17 06:03 Free T4 0.10 ng/dL (0.76-1.46) L 08/06/17 06:03 Urine Color Marie (Yellow) 08/05/17 Unknown Urine Turbidity Slightly-cloudy (Clear) 08/05/17 Unknown Urine pH 6.0 (5.0-7.0) 08/05/17 Unknown Ur Specific [place] 1.018 (1.003-1.030) 08/05/17 Unknown Urine Protein 30 mg/dl mg/dL (Negative) 08/05/17 Unknown Urine Glucose (UA) Neg mg/dL (Negative) 08/05/17 Unknown Urine Ketones 80 mg/dL (Negative) 08/05/17 Unknown Urine Blood Neg (Negative) 08/05/17 Unknown Urine Nitrite Neg (Negative) 08/05/17 Unknown Urine Bilirubin Neg (Negative) 08/05/17 Unknown Urine Urobilinogen 4.0 mg/dL (<2.0) 08/05/17 Unknown Ur Leukocyte Esterase Sm (Negative) 08/05/17 Unknown Urine WBC (Auto) 8.0 /HPF (0.0-6.0) H 08/05/17 Unknown Urine RBC (Auto) 6.0 /HPF (0.0-6.0) 08/05/17 Unknown U Epithel Cells (Auto) 20.0 /HPF (0-13.0) H 08/05/17 Unknown Urine Bacteria (Auto) 1+ /HPF (Negative) 08/05/17 Unknown Urine Mucus Few /HPF 08/05/17 Unknown Urine Opiates Screen Presumptive negative 08/05/17 Unknown Urine Methadone Screen Presumptive negative 08/05/17 Unknown Ur Barbiturates Screen Presumptive negative 08/05/17 Unknown Ur Phencyclidine Scrn Presumptive negative 08/05/17 Unknown Ur Amphetamines Screen Presumptive negative 08/05/17 Unknown U Benzodiazepines Scrn Presumptive negative 08/05/17 Unknown Urine Cocaine Screen Presumptive negative 08/05/17 Unknown U Marijuana (THC) Screen Presumptive positive 08/05/17 Unknown Drugs of Abuse Note Disclamer 08/05/17 Unknown
[2017-08-09] MEDS: COLACE PO SCH ×2 (09:39→22:20)
[2017-08-09] MEDS: LOVENOX SUB-Q SCH (09:40)
[2017-08-09] MEDS: K-DUR PO SCH (09:40)
[2017-08-09] MEDS: SENOKOT PO SCH ×2 (09:40→23:22)
[2017-08-09] MEDS: LEXAPRO PO SCH (09:40)
[2017-08-09] MEDS: ECOTRIN PO SCH (09:41)
[2017-08-09] MEDS: ZOLOFT PO SCH (09:41)
[2017-08-09] MEDS: EFFIENT PO SCH (09:42)
[2017-08-09] MEDS: LOPRESSOR PO SCH ×2 (09:43→23:21)
[2017-08-09] MEDS: ZESTRIL PO SCH (09:44)
[2017-08-09] MEDS: NORVASC PO SCH (09:45)
[2017-08-09] MEDS: LEVAQUIN 750MG/150ML 750 MG/150 ML BAG IV SCH (09:46)
[2017-08-09] MEDS: PEPCID PO SCH ×2 (10:14→23:22)
--- NOTE | 2017-08-09 11:02 | XRay Report ---
Single view chest: History: Shortness of breath. Findings: Normal cardiomediastinal silhouette the trachea is midline. Bibasilar atelectasis. Normal CP angles. Impression: Bibasilar atelectasis.
--- NOTE | 2017-08-09 12:28 | Progress Note ---
Assessment and Plan - Patient Problems (1) Coronary artery disease Current Visit: Yes Status: Acute Plan to address problem: Coronary artery disease is stable and asymptomatic, continue medical therapy and risk factor modification. (2) Cardiomyopathy Current Visit: Yes Status: Acute Plan to address problem: Mild to moderate severity cardiomyopathy with left ventricular ejection fraction 40-45%. Continue medical management, no clinical or x-ray evidence of heart failure. Subjective Date of service: 08/09/17 Interval history: There are no new cardiac complaints. The patient was admitted with altered mental status, severe depression, deconditioned physical status and severe hypothyroidism with a TSH level of 29. Cardiac status is asymptomatic. ECG is benign. Chest x-ray shows a small right pleural effusion with atelectasis in the right base but no evidence of heart failure or fluid overload. There is some underlying history of coronary artery disease, with drug-eluting stent to the first obtuse marginal 3 years ago , and a mild to moderate severity cardiomyopathy. Echocardiogram on this presentation reported an ejection fraction 40-45%. Objective Vital Signs Temp Pulse Pulse Pulse Resp Resp BP 08/09/17 10:00 98 H 98 H 18 08/09/17 09:44 98 H 119/78 08/09/17 09:43 98 H 119/78 08/09/17 09:04 08/09/17 09:03 91 H 18 08/09/17 08:06 97.8 F 98 H 18 119/78 08/09/17 03:57 98.1 F 91 H 18 112/80 08/09/17 00:10 97.9 F 94 H 18 119/84 08/08/17 22:00 94 H 20 08/08/17 19:21 98.0 F 96 H 18 114/71 08/08/17 19:15 08/08/17 15:15 101 H 18 08/08/17 15:01 94 H 18 08/08/17 12:56 98.8 F 98 H 18 111/75 Pulse Ox 08/09/17 10:00 97 08/09/17 09:44 08/09/17 09:43 08/09/17 09:04 97 08/09/17 09:03 08/09/17 08:06 95 08/09/17 03:57 97 08/09/17 00:10 94 08/08/17 22:00 12/30/17 19:21 94 08/08/17 19:15 95 08/08/17 15:15 08/08/17 15:01 08/08/17 12:56 96 - Physical Examination General: No Apparent Distress HEENT: Positive: PERRL Neck: Positive: neck supple Cardiac: Positive: Reg Rate and Rhythm Lungs: Positive: Decreased Breath Sounds Neuro: Positive: Weakness Abdomen: Positive: Soft Skin: Positive: Clear Extremities: Absent: edema - Labs and Meds CBC 08/09/17 Range/Units 04:38 WBC 6.0 (4.5-11.0) K/mm3 RBC 3.50 L (3.65-5.03) M/mm3 Hgb 10.4 (10.1-14.3) gm/dl Hct 29.9 L (30.3-42.9) % Plt Count 293 (140-440) K/mm3 Lymph # 0.6 L (1.2-5.4) K/mm3 [place] # 0.3 (0.0-0.8) K/mm3 Eos # 0.0 (0.0-0.4) K/mm3 Baso # 0.0 (0.0-0.1) K/mm3 Comprehensive Metabolic Panel 08/08/17 08/09/17 Range/Units 16:56 04:38 Sodium 136 L 137 (137-145) mmol/L Potassium 3.0 L 3.2 L (3.6-5.0) mmol/L Chloride 90.1 L 90.2 L (98-107) mmol/L Carbon Dioxide 28 28 (22-30) mmol/L BUN 8 11 (7-17) mg/dL Creatinine 1.1 1.1 (0.7-1.2) mg/dL Glucose 160 H 175 H (65-100) mg/dL Calcium 7.9 L 7.7 L (8.4-10.2) mg/dL
[2017-08-09] MEDS ORDERED: K-DUR PO ONE (15:00)
--- NOTE | 2017-08-09 15:46 | Progress Note ---
Assessment and Plan RLL pneumonia Cardiomyopathy w low EF Small R effusion asthma/ COPD with exac. Active but improving Acute respiratory failure, hypoxia.Improved Suspect MAIDA +/- OHS Obesity Atelectasis Dementia Hypokalemia. Needs replacement. Recommendations Monitor ,correct potassium prn diuresis Continue with Albuterol 2.5 milligram nebulizations every 4-6 hours with or without ipratropium, for chest congestion. Solu-Medrol 40-60 mg IV every 6-8 hours Oxygen support Once improved, can transition to PO steroids,LABA/ICS combo Subjective Date of service: 08/09/17 Interval history: Reports cough and SOB to be better. Some wheezing. No nausea,vomit. Objective Vital Signs - 12hr 08/09/17 08/09/17 08/09/17 03:57 08:06 09:03 Temperature 98.1 F 97.8 F Pulse Rate 91 H 98 H Pulse Rate [ 91 H Anterior Bilateral Throughout] Pulse Rate [ From Monitor] Respiratory 18 18 Rate Respiratory 18 Rate [Anterior Bilateral Throughout] Blood Pressure 112/80 119/78 O2 Sat by Pulse 97 95 Oximetry 08/09/17 08/09/17 08/09/17 09:04 09:43 09:44 Temperature Pulse Rate 98 H 98 H Pulse Rate [ Anterior Bilateral Throughout] Pulse Rate [ From Monitor] Respiratory Rate Respiratory Rate [Anterior Bilateral Throughout] Blood Pressure 119/78 119/78 O2 Sat by Pulse 97 Oximetry 08/09/17 08/09/17 08/09/17 10:00 13:08 14:51 Temperature 98.0 F Pulse Rate 98 H 90 Pulse Rate [ 91 H Anterior Bilateral Throughout] Pulse Rate [ 98 H From Monitor] Respiratory 18 18 Rate Respiratory 17 Rate [Anterior Bilateral Throughout] Blood Pressure 106/73 O2 Sat by Pulse 97 96 Oximetry 08/09/17 15:06 Temperature Pulse Rate Pulse Rate [ 92 H Anterior Bilateral Throughout] Pulse Rate [ From Monitor] Respiratory Rate Respiratory 18 Rate [Anterior Bilateral Throughout] Blood Pressure O2 Sat by Pulse Oximetry Constitutional: no acute distress, alert Eyes: non-icteric ENT: oropharynx moist Neck: supple, no JVD Effort: normal Ascultation: Bilateral: wheezes Cardiovascular: regular rate and rhythm Gastrointestinal: normoactive bowel sounds, soft, non-tender, non-distended Integumentary: normal Extremities: no cyanosis, no edema, pink and warm Neurologic: normal mental status, non-focal exam, CN II-XII normal Psychiatric: mood appropriate, affect normal CBC and BMP: 08/09/17 04:38 08/09/17 04:38 ABG, PT/INR, D-dimer: ABG POC ABG pH 7.511 (7.35-7.45) H 08/07/17 16:41 POC ABG pCO2 38.4 (35-45) 08/07/17 16:41 POC ABG pO2 78 (80-105) L 08/07/17 16:41 POC ABG HCO3 30.7 08/07/17 16:41 POC ABG Total CO2 32 08/07/17 16:41 POC ABG O2 Sat 97 08/07/17 16:41 PT/INR, D-dimer PT 13.4 Sec. (12.2-14.9) 08/05/17 22:56 INR 0.97 (0.87-1.13) 08/05/17 22:56 D-Dimer 1438.48 ng/mlDDU (0-234) H 08/05/17 22:56 Abnormal lab findings: Abnormal Labs 08/05/17 08/05/17 08/05/17 22:08 22:45 22:56 RBC Hct MCHC Lymph % (Auto) 5.4 L Lymph # 0.3 L Seg Neutrophils % 89.2 H Seg Neuts % (Manual) Lymphocytes % (Manual) Lymphocytes # (Manual) D-Dimer POC ABG pH POC ABG pO2 Sodium Potassium 3.0 L Chloride 89.3 L Carbon Dioxide BUN 5 L Creatinine Glucose 117 H POC Glucose 115 H Calcium 8.1 L Total Bilirubin 2.00 H Total Creatine Kinase Albumin Cholesterol LDL Cholesterol Direct TSH Free T4 Urine WBC (Auto) U Epithel Cells (Auto) 08/05/17 08/05/17 08/05/17 22:56 23:35 Unknown RBC Hct MCHC Lymph % (Auto) Lymph # Seg Neutrophils % Seg Neuts % (Manual) Lymphocytes % (Manual) Lymphocytes # (Manual) D-Dimer 1438.48 H POC ABG pH POC ABG pO2 Sodium Potassium Chloride Carbon Dioxide BUN Creatinine Glucose POC Glucose Calcium Total Bilirubin Total Creatine Kinase Albumin Cholesterol 345 H LDL Cholesterol Direct 275 H TSH Free T4 Urine WBC (Auto) 8.0 H U Epithel Cells (Auto) 20.0 H 08/06/17 08/06/17 08/06/17 06:03 06:03 06:03 RBC Hct MCHC Lymph % (Auto) Lymph # Seg Neutrophils % Seg Neuts % (Manual) 90.0 H Lymphocytes % (Manual) 8.0 L Lymphocytes # (Manual) 0.4 L D-Dimer POC ABG pH POC ABG pO2 Sodium Potassium 2.5 L* Chloride 88.8 L Carbon Dioxide 20 L BUN 5 L Creatinine 0.6 L Glucose 151 H POC Glucose Calcium 8.1 L Total Bilirubin 1.80 H Total Creatine Kinase 419 H Albumin 3.8 L Cholesterol LDL Cholesterol Direct TSH Free T4 Urine WBC (Auto) U Epithel Cells (Auto) 08/06/17 08/06/17 08/06/17 06:03 07:28 11:44 RBC Hct MCHC Lymph % (Auto) Lymph # Seg Neutrophils % Seg Neuts % (Manual) Lymphocytes % (Manual) Lymphocytes # (Manual) D-Dimer POC ABG pH POC ABG pO2 Sodium Potassium Chloride Carbon Dioxide BUN Creatinine Glucose POC Glucose 145 H 132 H Calcium Total Bilirubin Total Creatine Kinase Albumin Cholesterol LDL Cholesterol Direct TSH 29.780 H Free T4 0.10 L Urine WBC (Auto) U Epithel Cells (Auto) 08/06/17 08/06/17 08/06/17 13:07 16:24 23:18 RBC Hct MCHC Lymph % (Auto) Lymph # Seg Neutrophils % Seg Neuts % (Manual) Lymphocytes % (Manual) Lymphocytes # (Manual) D-Dimer POC ABG pH POC ABG pO2 Sodium Potassium Chloride Carbon Dioxide BUN Creatinine Glucose POC Glucose 173 H 175 H Calcium Total Bilirubin Total Creatine Kinase 382 H Albumin Cholesterol LDL Cholesterol Direct TSH Free T4 Urine WBC (Auto) U Epithel Cells (Auto) 08/06/17 08/07/17 08/07/17 Unknown 05:19 07:42 RBC Hct MCHC Lymph % (Auto) Lymph # Seg Neutrophils % Seg Neuts % (Manual) Lymphocytes % (Manual) Lymphocytes # (Manual) D-Dimer POC ABG pH POC ABG pO2 Sodium Potassium Chloride 93.8 L Carbon Dioxide BUN 4 L Creatinine Glucose 144 H POC Glucose 109 H Calcium 7.7 L Total Bilirubin Total Creatine Kinase 396 H Albumin Cholesterol LDL Cholesterol Direct TSH Free T4 Urine WBC (Auto) U Epithel Cells (Auto) 08/07/17 08/07/17 08/07/17 11:05 16:40 16:41 RBC Hct MCHC Lymph % (Auto) Lymph # Seg Neutrophils % Seg Neuts % (Manual) Lymphocytes % (Manual) Lymphocytes # (Manual) D-Dimer POC ABG pH 7.511 H POC ABG pO2 78 L Sodium Potassium Chloride Carbon Dioxide BUN Creatinine Glucose POC Glucose 132 H 112 H Calcium Total Bilirubin Total Creatine Kinase Albumin Cholesterol LDL Cholesterol Direct TSH Free T4 Urine WBC (Auto) U Epithel Cells (Auto) 08/07/17 08/08/17 08/08/17 22:14 07:35 09:10 RBC Hct MCHC Lymph % (Auto) Lymph # Seg Neutrophils % Seg Neuts % (Manual) Lymphocytes % (Manual) Lymphocytes # (Manual) D-Dimer POC ABG pH POC ABG pO2 Sodium Potassium 2.7 L* Chloride 90.9 L Carbon Dioxide BUN 6 L Creatinine Glucose 166 H POC Glucose 191 H 159 H Calcium 8.0 L Total Bilirubin Total Creatine Kinase Albumin Cholesterol LDL Cholesterol Direct TSH Free T4 Urine WBC (Auto) U Epithel Cells (Auto) 08/08/17 08/08/17 08/08/17 11:24 16:35 16:56 RBC Hct MCHC Lymph % (Auto) Lymph # Seg Neutrophils % Seg Neuts % (Manual) Lymphocytes % (Manual) Lymphocytes # (Manual) D-Dimer POC ABG pH POC ABG pO2 Sodium 136 L Potassium 3.0 L Chloride 90.1 L Carbon Dioxide BUN Creatinine Glucose 160 H POC Glucose 179 H 153 H Calcium 7.9 L Total Bilirubin Total Creatine Kinase Albumin Cholesterol LDL Cholesterol Direct TSH Free T4 Urine WBC (Auto) U Epithel Cells (Auto) 08/08/17 08/09/17 08/09/17 21:40 04:38 04:38 RBC 3.50 L Hct 29.9 L MCHC 35 H Lymph % (Auto) 9.9 L Lymph # 0.6 L Seg Neutrophils % 85.0 H Seg Neuts % (Manual) Lymphocytes % (Manual) Lymphocytes # (Manual) D-Dimer POC ABG pH POC ABG pO2 Sodium Potassium 3.2 L Chloride 90.2 L Carbon Dioxide BUN Creatinine Glucose 175 H POC Glucose 177 H Calcium 7.7 L Total Bilirubin Total Creatine Kinase Albumin Cholesterol LDL Cholesterol Direct TSH Free T4 Urine WBC (Auto) U Epithel Cells (Auto) 08/09/17 08/09/17 08:14 11:41 RBC Hct MCHC Lymph % (Auto) Lymph # Seg Neutrophils % Seg Neuts % (Manual) Lymphocytes % (Manual) Lymphocytes # (Manual) D-Dimer POC ABG pH POC ABG pO2 Sodium Potassium Chloride Carbon Dioxide BUN Creatinine Glucose POC Glucose 150 H 176 H Calcium Total Bilirubin Total Creatine Kinase Albumin Cholesterol LDL Cholesterol Direct TSH Free T4 Urine WBC (Auto) U Epithel Cells (Auto)
[2017-08-09] MEDS: PRAVACHOL PO SCH (23:22)
[2017-08-10] MEDS: DUONEB *Not for PRN Use IH SCH ×7 (01:38→19:13)
[2017-08-10] MEDS: SYNTHROID PO SCH (05:48)
[2017-08-10] MEDS: ZOFRAN IV PRN ×2 (05:49→22:53)
[2017-08-10 06:46] LABS: BUN/Creatinine Ratio 15; Blood Urea Nitrogen 15 mg/dL (7-17); Calcium 7.7 mg/dL (8.4-10.2); Hemolysis Index 21
[2017-08-10] MEDS: LOVENOX SUB-Q SCH (09:08)
[2017-08-10] MEDS: NORVASC PO SCH (09:09)
[2017-08-10] MEDS: EFFIENT PO SCH (09:10)
[2017-08-10] MEDS: ZESTRIL PO SCH (09:10)
[2017-08-10] MEDS: LOPRESSOR PO SCH ×2 (09:10→22:54)
[2017-08-10] MEDS: ECOTRIN PO SCH (09:10)
[2017-08-10] MEDS: SENOKOT PO SCH ×2 (09:10→22:52)
[2017-08-10] MEDS: ZOLOFT PO SCH (09:11)
[2017-08-10] MEDS: COLACE PO SCH ×2 (09:11→22:53)
[2017-08-10] MEDS: PEPCID PO SCH ×2 (09:11→22:52)
[2017-08-10] MEDS: LEXAPRO PO SCH (09:11)
[2017-08-10] MEDS: K-DUR PO SCH (09:12)
[2017-08-10] MEDS: LEVAQUIN 750MG/150ML 750 MG/150 ML BAG IV SCH (09:12)
[2017-08-10] MEDS: KCL 10MEQ/100ML 10 MEQ/100 ML BAG IV SCH ×4 (11:16→15:42)
--- NOTE | 2017-08-10 13:32 | Progress Note ---
Assessment and Plan - Patient Problems (1) Coronary artery disease Current Visit: Yes Status: Acute Plan to address problem: Coronary artery disease is stable and asymptomatic, continue medical therapy and risk factor modification. (2) Cardiomyopathy Current Visit: Yes Status: Acute Plan to address problem: Mild to moderate severity cardiomyopathy with left ventricular ejection fraction 40-45%. Continue medical management, no clinical or x-ray evidence of heart failure. Subjective Date of service: 08/10/17 Interval history: There are no new cardiac complaints. The patient was admitted with altered mental status, severe depression, deconditioned physical status and severe hypothyroidism with a TSH level of 29. Cardiac status is asymptomatic. ECG is benign. Chest x-ray shows a small right pleural effusion with atelectasis in the right base but no evidence of heart failure or fluid overload. There is some underlying history of coronary artery disease, with drug-eluting stent to the first obtuse marginal 3 years ago , and a mild to moderate severity cardiomyopathy. Echocardiogram on this presentation reported an ejection fraction 40-45%. Objective Vital Signs Temp Pulse Pulse Resp Resp BP BP 08/10/17 10:00 104 H 08/10/17 09:10 93 H 140/93 08/10/17 09:09 93 H 140/93 08/10/17 09:02 88 18 08/10/17 08:50 85 18 08/10/17 08:00 97.9 F 94 H 20 142/96 08/10/17 07:49 94 H 08/10/17 04:16 98.1 F 18 124/83 08/10/17 02:29 92 H 16 08/09/17 22:00 90 18 08/09/17 21:54 08/09/17 21:15 90 20 08/09/17 21:00 88 20 08/09/17 19:44 98.1 F 90 18 151/99 08/09/17 15:06 92 H 18 08/09/17 14:51 91 H 17 Pulse Ox 08/10/17 10:00 08/10/17 09:10 08/10/17 09:09 08/10/17 09:02 08/10/17 08:50 08/10/17 08:00 98 08/10/17 07:49 97 08/10/17 04:16 08/10/17 02:29 08/09/17 22:00 08/09/17 21:54 96 12/31/17 21:15 08/09/17 21:00 08/09/17 19:44 100 08/09/17 15:06 08/09/17 14:51 - Physical Examination General: No Apparent Distress HEENT: Positive: PERRL Neck: Positive: neck supple Cardiac: Positive: Reg Rate and Rhythm Lungs: Positive: Decreased Breath Sounds Neuro: Positive: Weakness Abdomen: Positive: Soft Skin: Positive: Clear Extremities: Absent: edema - Labs and Meds Comprehensive Metabolic Panel 08/10/17 Range/Units 05:43 Sodium 136 L (137-145) mmol/L Potassium 3.3 L (3.6-5.0) mmol/L Chloride 89.8 L (98-107) mmol/L Carbon Dioxide 30 (22-30) mmol/L BUN 15 (7-17) mg/dL Creatinine 1.0 (0.7-1.2) mg/dL Glucose 176 H (65-100) mg/dL Calcium 7.7 L (8.4-10.2) mg/dL
--- NOTE | 2017-08-10 13:42 | Progress Note ---
Subjective Date of service: 08/10/17 Objective Vital Signs - 12hr 08/10/17 08/10/17 08/10/17 02:29 04:16 07:49 Temperature 98.1 F Pulse Rate 94 H Pulse Rate [ 92 H Anterior Bilateral Throughout] Respiratory 18 Rate Respiratory 16 Rate [Anterior Bilateral Throughout] Blood Pressure 124/83 Blood Pressure [Left] O2 Sat by Pulse 97 Oximetry 08/10/17 08/10/17 08/10/17 08:00 08:50 09:02 Temperature 97.9 F Pulse Rate 94 H Pulse Rate [ 85 88 Anterior Bilateral Throughout] Respiratory 20 Rate Respiratory 18 18 Rate [Anterior Bilateral Throughout] Blood Pressure Blood Pressure 142/96 [Left] O2 Sat by Pulse 98 Oximetry 08/10/17 08/10/17 08/10/17 09:09 09:10 10:00 Temperature Pulse Rate 93 H 93 H 104 H Pulse Rate [ Anterior Bilateral Throughout] Respiratory Rate Respiratory Rate [Anterior Bilateral Throughout] Blood Pressure 140/93 140/93 Blood Pressure [Left] O2 Sat by Pulse Oximetry Constitutional: no acute distress, alert Eyes: non-icteric ENT: oropharynx moist Neck: supple, no JVD Effort: normal Ascultation: Bilateral: wheezes, rhonchi (bibasilar rhonchi) Cardiovascular: regular rate and rhythm Gastrointestinal: normoactive bowel sounds, soft, non-tender, non-distended Integumentary: normal Extremities: no cyanosis, no edema, pink and warm Neurologic: normal mental status, non-focal exam, CN II-XII normal Psychiatric: mood appropriate, affect normal CBC and BMP: 08/09/17 04:38 08/10/17 05:43 ABG, PT/INR, D-dimer: ABG POC ABG pH 7.511 (7.35-7.45) H 08/07/17 16:41 POC ABG pCO2 38.4 (35-45) 08/07/17 16:41 POC ABG pO2 78 (80-105) L 08/07/17 16:41 POC ABG HCO3 30.7 08/07/17 16:41 POC ABG Total CO2 32 08/07/17 16:41 POC ABG O2 Sat 97 08/07/17 16:41 PT/INR, D-dimer PT 13.4 Sec. (12.2-14.9) 08/05/17 22:56 INR 0.97 (0.87-1.13) 08/05/17 22:56 D-Dimer 1438.48 ng/mlDDU (0-234) H 08/05/17 22:56 Abnormal lab findings: Abnormal Labs 08/05/17 08/05/17 08/05/17 22:08 22:45 22:56 RBC Hct MCHC Lymph % (Auto) 5.4 L Lymph # 0.3 L Seg Neutrophils % 89.2 H Seg Neuts % (Manual) Lymphocytes % (Manual) Lymphocytes # (Manual) D-Dimer POC ABG pH POC ABG pO2 Sodium Potassium 3.0 L Chloride 89.3 L Carbon Dioxide BUN 5 L Creatinine Glucose 117 H POC Glucose 115 H Calcium 8.1 L Total Bilirubin 2.00 H Total Creatine Kinase Albumin Cholesterol LDL Cholesterol Direct TSH Free T4 Urine WBC (Auto) U Epithel Cells (Auto) 08/05/17 08/05/17 08/05/17 22:56 23:35 Unknown RBC Hct MCHC Lymph % (Auto) Lymph # Seg Neutrophils % Seg Neuts % (Manual) Lymphocytes % (Manual) Lymphocytes # (Manual) D-Dimer 1438.48 H POC ABG pH POC ABG pO2 Sodium Potassium Chloride Carbon Dioxide BUN Creatinine Glucose POC Glucose Calcium Total Bilirubin Total Creatine Kinase Albumin Cholesterol 345 H LDL Cholesterol Direct 275 H TSH Free T4 Urine WBC (Auto) 8.0 H U Epithel Cells (Auto) 20.0 H 08/06/17 08/06/17 08/06/17 06:03 06:03 06:03 RBC Hct MCHC Lymph % (Auto) Lymph # Seg Neutrophils % Seg Neuts % (Manual) 90.0 H Lymphocytes % (Manual) 8.0 L Lymphocytes # (Manual) 0.4 L D-Dimer POC ABG pH POC ABG pO2 Sodium Potassium 2.5 L* Chloride 88.8 L Carbon Dioxide 20 L BUN 5 L Creatinine 0.6 L Glucose 151 H POC Glucose Calcium 8.1 L Total Bilirubin 1.80 H Total Creatine Kinase 419 H Albumin 3.8 L Cholesterol LDL Cholesterol Direct TSH Free T4 Urine WBC (Auto) U Epithel Cells (Auto) 08/06/17 08/06/17 08/06/17 06:03 07:28 11:44 RBC Hct MCHC Lymph % (Auto) Lymph # Seg Neutrophils % Seg Neuts % (Manual) Lymphocytes % (Manual) Lymphocytes # (Manual) D-Dimer POC ABG pH POC ABG pO2 Sodium Potassium Chloride Carbon Dioxide BUN Creatinine Glucose POC Glucose 145 H 132 H Calcium Total Bilirubin Total Creatine Kinase Albumin Cholesterol LDL Cholesterol Direct TSH 29.780 H Free T4 0.10 L Urine WBC (Auto) U Epithel Cells (Auto) 08/06/17 08/06/17 08/06/17 13:07 16:24 23:18 RBC Hct MCHC Lymph % (Auto) Lymph # Seg Neutrophils % Seg Neuts % (Manual) Lymphocytes % (Manual) Lymphocytes # (Manual) D-Dimer POC ABG pH POC ABG pO2 Sodium Potassium Chloride Carbon Dioxide BUN Creatinine Glucose POC Glucose 173 H 175 H Calcium Total Bilirubin Total Creatine Kinase 382 H Albumin Cholesterol LDL Cholesterol Direct TSH Free T4 Urine WBC (Auto) U Epithel Cells (Auto) 08/06/17 08/07/17 08/07/17 Unknown 05:19 07:42 RBC Hct MCHC Lymph % (Auto) Lymph # Seg Neutrophils % Seg Neuts % (Manual) Lymphocytes % (Manual) Lymphocytes # (Manual) D-Dimer POC ABG pH POC ABG pO2 Sodium Potassium Chloride 93.8 L Carbon Dioxide BUN 4 L Creatinine Glucose 144 H POC Glucose 109 H Calcium 7.7 L Total Bilirubin Total Creatine Kinase 396 H Albumin Cholesterol LDL Cholesterol Direct TSH Free T4 Urine WBC (Auto) U Epithel Cells (Auto) 08/07/17 08/07/17 08/07/17 11:05 16:40 16:41 RBC Hct MCHC Lymph % (Auto) Lymph # Seg Neutrophils % Seg Neuts % (Manual) Lymphocytes % (Manual) Lymphocytes # (Manual) D-Dimer POC ABG pH 7.511 H POC ABG pO2 78 L Sodium Potassium Chloride Carbon Dioxide BUN Creatinine Glucose POC Glucose 132 H 112 H Calcium Total Bilirubin Total Creatine Kinase Albumin Cholesterol LDL Cholesterol Direct TSH Free T4 Urine WBC (Auto) U Epithel Cells (Auto) 08/07/17 08/08/17 08/08/17 22:14 07:35 09:10 RBC Hct MCHC Lymph % (Auto) Lymph # Seg Neutrophils % Seg Neuts % (Manual) Lymphocytes % (Manual) Lymphocytes # (Manual) D-Dimer POC ABG pH POC ABG pO2 Sodium Potassium 2.7 L* Chloride 90.9 L Carbon Dioxide BUN 6 L Creatinine Glucose 166 H POC Glucose 191 H 159 H Calcium 8.0 L Total Bilirubin Total Creatine Kinase Albumin Cholesterol LDL Cholesterol Direct TSH Free T4 Urine WBC (Auto) U Epithel Cells (Auto) 08/08/17 08/08/17 08/08/17 11:24 16:35 16:56 RBC Hct MCHC Lymph % (Auto) Lymph # Seg Neutrophils % Seg Neuts % (Manual) Lymphocytes % (Manual) Lymphocytes # (Manual) D-Dimer POC ABG pH POC ABG pO2 Sodium 136 L Potassium 3.0 L Chloride 90.1 L Carbon Dioxide BUN Creatinine Glucose 160 H POC Glucose 179 H 153 H Calcium 7.9 L Total Bilirubin Total Creatine Kinase Albumin Cholesterol LDL Cholesterol Direct TSH Free T4 Urine WBC (Auto) U Epithel Cells (Auto) 08/08/17 08/09/17 08/09/17 21:40 04:38 04:38 RBC 3.50 L Hct 29.9 L MCHC 35 H Lymph % (Auto) 9.9 L Lymph # 0.6 L Seg Neutrophils % 85.0 H Seg Neuts % (Manual) Lymphocytes % (Manual) Lymphocytes # (Manual) D-Dimer POC ABG pH POC ABG pO2 Sodium Potassium 3.2 L Chloride 90.2 L Carbon Dioxide BUN Creatinine Glucose 175 H POC Glucose 177 H Calcium 7.7 L Total Bilirubin Total Creatine Kinase Albumin Cholesterol LDL Cholesterol Direct TSH Free T4 Urine WBC (Auto) U Epithel Cells (Auto) 08/09/17 08/09/17 08/09/17 08:14 11:41 16:20 RBC Hct MCHC Lymph % (Auto) Lymph # Seg Neutrophils % Seg Neuts % (Manual) Lymphocytes % (Manual) Lymphocytes # (Manual) D-Dimer POC ABG pH POC ABG pO2 Sodium Potassium Chloride Carbon Dioxide BUN Creatinine Glucose POC Glucose 150 H 176 H 134 H Calcium Total Bilirubin Total Creatine Kinase Albumin Cholesterol LDL Cholesterol Direct TSH Free T4 Urine WBC (Auto) U Epithel Cells (Auto) 08/09/17 08/10/17 08/10/17 21:44 05:43 07:38 RBC Hct MCHC Lymph % (Auto) Lymph # Seg Neutrophils % Seg Neuts % (Manual) Lymphocytes % (Manual) Lymphocytes # (Manual) D-Dimer POC ABG pH POC ABG pO2 Sodium 136 L Potassium 3.3 L Chloride 89.8 L Carbon Dioxide BUN Creatinine Glucose 176 H POC Glucose 205 H 160 H Calcium 7.7 L Total Bilirubin Total Creatine Kinase Albumin Cholesterol LDL Cholesterol Direct TSH Free T4 Urine WBC (Auto) U Epithel Cells (Auto) 08/10/17 11:59 RBC Hct MCHC Lymph % (Auto) Lymph # Seg Neutrophils % Seg Neuts % (Manual) Lymphocytes % (Manual) Lymphocytes # (Manual) D-Dimer POC ABG pH POC ABG pO2 Sodium Potassium Chloride Carbon Dioxide BUN Creatinine Glucose POC Glucose 227 H Calcium Total Bilirubin Total Creatine Kinase Albumin Cholesterol LDL Cholesterol Direct TSH Free T4 Urine WBC (Auto) U Epithel Cells (Auto)
--- NOTE | 2017-08-10 15:17 | Progress Note ---
Assessment and Plan Assessment and plan: 67 year old female who presented to the ER for altered mental status and confusion, patient has dementia, was not taking her medications. Patient lost family members and is depressed Acute Metabolic encephalopathy - likely multifactorial worsening dementia plus severe depression, plus severe hypothyroidism Acute respiratory failure with hypoxia - PE workup is negative Pneumonia - Suspected right lower lobe pneumonia, small right lower lobe pleural effusion - Continue Levaquin COPD exacerbation - Pulmonary consult, continue nebs, steroids Systolic CHF with exacerbation - Echo shows EF of 40% - D/C Lasix - cardiology consult appreciated - Recommend MP test before discharge Major Depression - mental health consulted on 08/06/2017 but didn't evaluate the patient Diabetes mellitus type 2: continue SSI - A1c is 5.2 Hypothyroidism - Patient started on levothyroxine Hypokalemia: - Repleted, we'll check BMP - Magnesium level is within normal limits Severe malnutrition - electric motor fitter consulted, encouraged to increase PO intake Hyperlipidemia - On statin DVT prophylaxis - Lovenox Disposition - Need mental health evaluation and MP before discharge History Interval history: Patient was seen and evaluated this morning, since complaining nausea, vomiting , dry mouth. She still has shortness of breath and lack of energy. Hospitalist Physical - Physical exam Narrative exam: Not in cardiopulmonary distress. The patient appeared well nourished and normally developed. Vital signs as documented. Head exam is unremarkable. No scleral icterus . Neck is without jugular venous distension, thyromegaly, or carotid bruits. Lungs are clear to auscultation. Cardiac exam reveals regular rate and Rhythm. First and second heart sounds normal. No murmurs, rubs or gallops. Abdominal exam reveals normal bowel sounds, no masses, no organomegaly and no aortic enlargement. Extremities are nonedematous and both femoral and pedal pulses are normal. COMPONENT LAB TECH: Alert and oriented 3. No focal weakness. Psych: depressed - Constitutional Vitals: Temp Pulse Resp BP Pulse Ox 97.9 F 104 H 18 140/93 98 08/10/17 08:00 08/10/17 10:00 08/10/17 09:02 08/10/17 09:10 08/10/17 08:00 General appearance: Present: no acute distress, disheveled, other (appears chronically ill) Results - Labs CBC & Chem 7: 08/09/17 04:38 08/10/17 05:43 Labs: Laboratory Last Values WBC 6.0 K/mm3 (4.5-11.0) 08/09/17 04:38 RBC 3.50 M/mm3 (3.65-5.03) L 08/09/17 04:38 Hgb 10.4 gm/dl (10.1-14.3) 08/09/17 04:38 Hct 29.9 % (30.3-42.9) L 08/09/17 04:38 MCV 85 fl (79-97) 08/09/17 04:38 MCH 30 pg (28-32) 08/09/17 04:38 MCHC 35 % (30-34) H 08/09/17 04:38 RDW 14.7 % (13.2-15.2) 08/09/17 04:38 Plt Count 293 K/mm3 (140-440) 08/09/17 04:38 Lymph % (Auto) 9.9 % (13.4-35.0) L 08/09/17 04:38 [place] % (Auto) 5.1 % (0.0-7.3) 08/09/17 04:38 Eos % (Auto) 0.0 % (0.0-4.3) 08/09/17 04:38 Baso % (Auto) 0.0 % (0.0-1.8) 08/09/17 04:38 Lymph # 0.6 K/mm3 (1.2-5.4) L 08/09/17 04:38 [place] # 0.3 K/mm3 (0.0-0.8) 08/09/17 04:38 Eos # 0.0 K/mm3 (0.0-0.4) 08/09/17 04:38 Baso # 0.0 K/mm3 (0.0-0.1) 08/09/17 04:38 Add Manual Diff Complete 08/06/17 06:03 Total Counted 100 08/06/17 06:03 Seg Neutrophils % 85.0 % (40.0-70.0) H 08/09/17 04:38 Seg Neuts % (Manual) 90.0 % (40.0-70.0) H 08/06/17 06:03 Band Neutrophils % 1.0 % 08/06/17 06:03 Lymphocytes % (Manual) 8.0 % (13.4-35.0) L 08/06/17 06:03 Reactive Lymphs % (Man) 0 % 08/06/17 06:03 Monocytes % (Manual) 1.0 % (0.0-7.3) 08/06/17 06:03 Eosinophils % (Manual) 0 % (0.0-4.3) 08/06/17 06:03 Basophils % (Manual) 0 % (0.0-1.8) 08/06/17 06:03 Metamyelocytes % 0 % 08/06/17 06:03 Myelocytes % 0 % 08/06/17 06:03 Promyelocytes % 0 % 08/06/17 06:03 Blast Cells % 0 % 08/06/17 06:03 Nucleated RBC % Not Reportable 08/06/17 06:03 Seg Neutrophils # 5.1 K/mm3 (1.8-7.7) 08/09/17 04:38 Seg Neutrophils # Man 5.0 K/mm3 (1.8-7.7) 08/06/17 06:03 Band Neutrophils # 0.1 K/mm3 08/06/17 06:03 Lymphocytes # (Manual) 0.4 K/mm3 (1.2-5.4) L 08/06/17 06:03 Abs React Lymphs (Man) 0.0 K/mm3 08/06/17 06:03 Monocytes # (Manual) 0.1 K/mm3 (0.0-0.8) 08/06/17 06:03 Eosinophils # (Manual) 0.0 K/mm3 (0.0-0.4) 08/06/17 06:03 Basophils # (Manual) 0.0 K/mm3 (0.0-0.1) 08/06/17 06:03 Metamyelocytes # 0.0 K/mm3 08/06/17 06:03 Myelocytes # 0.0 K/mm3 08/06/17 06:03 Promyelocytes # 0.0 K/mm3 08/06/17 06:03 Blast Cells # 0.0 K/mm3 08/06/17 06:03 WBC Morphology Not Reportable 08/06/17 06:03 Hypersegmented Neuts Not Reportable 08/06/17 06:03 Hyposegmented Neuts Not Reportable 08/06/17 06:03 Hypogranular Neuts Not Reportable 08/06/17 06:03 Smudge Cells Not Reportable 08/06/17 06:03 Toxic Granulation Not Reportable 08/06/17 06:03 Toxic Vacuolation Not Reportable 08/06/17 06:03 Dohle Bodies Not Reportable 08/06/17 06:03 Pelger-Huet Anomaly Not Reportable 08/06/17 06:03 Kemar Rods Not Reportable 08/06/17 06:03 Platelet Estimate Not Reportable 08/06/17 06:03 Clumped Platelets Not Reportable 08/06/17 06:03 Plt Clumps, EDTA Not Reportable 08/06/17 06:03 Large Platelets Not Reportable 08/06/17 06:03 Giant Platelets Not Reportable 08/06/17 06:03 Platelet Satelliting Not Reportable 08/06/17 06:03 Plt Morphology Comment Not Reportable 08/06/17 06:03 RBC Morphology Not Reportable 08/06/17 06:03 Dimorphic RBCs Not Reportable 08/06/17 06:03 Polychromasia Not Reportable 08/06/17 06:03 Hypochromasia Not Reportable 08/06/17 06:03 Poikilocytosis Not Reportable 08/06/17 06:03 Anisocytosis 1+ 08/06/17 06:03 Microcytosis Not Reportable 08/06/17 06:03 Macrocytosis Not Reportable 08/06/17 06:03 Spherocytes Not Reportable 08/06/17 06:03 Pappenheimer Bodies Not Reportable 08/06/17 06:03 Sickle Cells Not Reportable 08/06/17 06:03 Target Cells Not Reportable 08/06/17 06:03 Tear Drop Cells Not Reportable 08/06/17 06:03 Ovalocytes 1+ 08/06/17 06:03 Helmet Cells Not Reportable 08/06/17 06:03 [place] Bodies Not Reportable 08/06/17 06:03 Dyke Rings Not Reportable 08/06/17 06:03 [place] Cells Not Reportable 08/06/17 06:03 Bite Cells Not Reportable 08/06/17 06:03 Crenated Cell Not Reportable 08/06/17 06:03 Elliptocytes 1+ 08/06/17 06:03 Acanthocytes (Spur) Not Reportable 08/06/17 06:03 Rouleaux Not Reportable 08/06/17 06:03 Hemoglobin C Crystals Not Reportable 08/06/17 06:03 Schistocytes Not Reportable 08/06/17 06:03 Malaria parasites Not Reportable 08/06/17 06:03 Derek Bodies Not Reportable 08/06/17 06:03 Hem Pathologist Commnt No 08/06/17 06:03 PT 13.4 Sec. (12.2-14.9) 08/05/17 22:56 INR 0.97 (0.87-1.13) 08/05/17 22:56 APTT 27.5 Sec. (24.2-36.6) 08/05/17 22:56 D-Dimer 1438.48 ng/mlDDU (0-234) H 08/05/17 22:56 POC ABG pH 7.511 (7.35-7.45) H 08/07/17 16:41 POC ABG pCO2 38.4 (35-45) 08/07/17 16:41 POC ABG pO2 78 (80-105) L 08/07/17 16:41 POC ABG HCO3 30.7 08/07/17 16:41 POC ABG Total CO2 32 08/07/17 16:41 POC ABG O2 Sat 97 08/07/17 16:41 POC ABG Base Excess 8 08/07/17 16:41 FiO2 1.5 % 08/07/17 16:41 Sodium 136 mmol/L (137-145) L 08/10/17 05:43 Potassium 3.3 mmol/L (3.6-5.0) L 08/10/17 05:43 Chloride 89.8 mmol/L (98-107) L 08/10/17 05:43 Carbon Dioxide 30 mmol/L (22-30) 08/10/17 05:43 Anion Gap 20 mmol/L 08/10/17 05:43 BUN 15 mg/dL (7-17) 08/10/17 05:43 Creatinine 1.0 mg/dL (0.7-1.2) 08/10/17 05:43 Estimated GFR > 60 ml/min 08/10/17 05:43 BUN/Creatinine Ratio 15 % 08/10/17 05:43 Glucose 176 mg/dL (65-100) H 08/10/17 05:43 POC Glucose 227 (70-105) H 08/10/17 11:59 Hemoglobin A1c 5.2 % (4-6) 08/05/17 Unknown Lactic Acid 1.30 mmol/L (0.7-2.0) 08/05/17 22:56 Calcium 7.7 mg/dL (8.4-10.2) L 08/10/17 05:43 Magnesium 1.90 mg/dL (1.7-2.3) 08/06/17 06:03 Total Bilirubin 1.80 mg/dL (0.1-1.2) H 08/06/17 06:03 AST 19 units/L (5-40) 08/06/17 06:03 ALT 10 units/L (7-56) 08/06/17 06:03 Alkaline Phosphatase 66 units/L (35-129) 08/06/17 06:03 Total Creatine Kinase 396 units/L (30-135) H 08/06/17 Unknown CK-MB (CK-2) 2.1 ng/mL (0.0-4.0) 08/06/17 Unknown CK-MB (CK-2) Rel Index 0.5 (0-4) 08/06/17 Unknown Troponin T 0.028 ng/mL (0.00-0.029) 08/05/17 22:08 Total Protein 8.0 g/dL (6.3-8.2) 08/06/17 06:03 Albumin 3.8 g/dL (3.9-5) L 08/06/17 06:03 Albumin/Globulin Ratio 0.9 % 08/06/17 06:03 Triglycerides 138 mg/dL (2-149) 08/05/17 23:35 Cholesterol 345 mg/dL (50-199) H 08/05/17 23:35 LDL Cholesterol Direct 275 mg/dL (50-130) H 08/05/17 23:35 HDL Cholesterol 43 mg/dL (40-59) 08/05/17 23:35 Cholesterol/HDL Ratio 8.02 % 08/05/17 23:35 TSH 29.780 mlU/mL (0.270-4.200) H 08/06/17 06:03 Free T4 0.10 ng/dL (0.76-1.46) L 08/06/17 06:03 Urine Color Marie (Yellow) 08/05/17 Unknown Urine Turbidity Slightly-cloudy (Clear) 08/05/17 Unknown Urine pH 6.0 (5.0-7.0) 08/05/17 Unknown Ur Specific [place] 1.018 (1.003-1.030) 08/05/17 Unknown Urine Protein 30 mg/dl mg/dL (Negative) 08/05/17 Unknown Urine Glucose (UA) Neg mg/dL (Negative) 08/05/17 Unknown Urine Ketones 80 mg/dL (Negative) 08/05/17 Unknown Urine Blood Neg (Negative) 08/05/17 Unknown Urine Nitrite Neg (Negative) 08/05/17 Unknown Urine Bilirubin Neg (Negative) 08/05/17 Unknown Urine Urobilinogen 4.0 mg/dL (<2.0) 08/05/17 Unknown Ur Leukocyte Esterase Sm (Negative) 08/05/17 Unknown Urine WBC (Auto) 8.0 /HPF (0.0-6.0) H 08/05/17 Unknown Urine RBC (Auto) 6.0 /HPF (0.0-6.0) 08/05/17 Unknown U Epithel Cells (Auto) 20.0 /HPF (0-13.0) H 08/05/17 Unknown Urine Bacteria (Auto) 1+ /HPF (Negative) 08/05/17 Unknown Urine Mucus Few /HPF 08/05/17 Unknown Urine Opiates Screen Presumptive negative 08/05/17 Unknown Urine Methadone Screen Presumptive negative 08/05/17 Unknown Ur Barbiturates Screen Presumptive negative 08/05/17 Unknown Ur Phencyclidine Scrn Presumptive negative 08/05/17 Unknown Ur Amphetamines Screen Presumptive negative 08/05/17 Unknown U Benzodiazepines Scrn Presumptive negative 08/05/17 Unknown Urine Cocaine Screen Presumptive negative 08/05/17 Unknown U Marijuana (THC) Screen Presumptive positive 08/05/17 Unknown Drugs of Abuse Note Disclamer 08/05/17 Unknown
[2017-08-10] MEDS: PRAVACHOL PO SCH (22:58)
[2017-08-11] MEDS: DUONEB *Not for PRN Use IH SCH ×2 (02:34→06:22)
[2017-08-11 06:17] LABS: Hematocrit 28.8 % (30.3-42.9); Hemoglobin 9.9 gm/dl (10.1-14.3); Lymphocytes # (Auto) 0.7 K/mm3 (1.2-5.4); Lymphocytes % (Auto) 8.8 % (13.4-35.0); Mean Corpuscular HGB Conc 34 % (30-34); Mean Corpuscular Hemoglobin 30 pg (28-32); Mean Corpuscular Volume 86 fl (79-97); Monocytes # (Auto) 0.4 K/mm3 (0.0-0.8); Monocytes % (Auto) 4.6 % (0.0-7.3); Platelet Count 294 K/mm3 (140-440); Red Blood Count 3.35 M/mm3 (3.65-5.03); Red Cell Distribution Width 14.8 % (13.2-15.2)
[2017-08-11] MEDS: SYNTHROID PO SCH (06:30)
[2017-08-11 06:37] LABS: BUN/Creatinine Ratio 20; Blood Urea Nitrogen 22 mg/dL (7-17); Calcium 7.6 mg/dL (8.4-10.2); Hemolysis Index 2
[2017-08-11] MEDS ORDERED: DUONEB *Not for PRN Use IH SCH (08:00)
[2017-08-11 09:25] VITALS: BP 104/65
[2017-08-11] MEDS: LEVAQUIN 750MG/150ML 750 MG/150 ML BAG IV SCH (09:57)
[2017-08-11] MEDS: ECOTRIN PO SCH (09:58)
[2017-08-11] MEDS: EFFIENT PO SCH (09:58)
[2017-08-11] MEDS: LOVENOX SUB-Q SCH (09:58)
[2017-08-11] MEDS: K-DUR PO SCH (09:59)
[2017-08-11] MEDS: LEXAPRO PO SCH (09:59)
[2017-08-11] MEDS: LOPRESSOR PO SCH (10:00)
[2017-08-11] MEDS: SENOKOT PO SCH (10:00)
[2017-08-11] MEDS: ZOLOFT PO SCH (10:00)
[2017-08-11] MEDS: PEPCID PO SCH (10:00)
[2017-08-11] MEDS: COLACE PO SCH (10:00)
[2017-08-11] MEDS: NORVASC PO SCH (10:01)
[2017-08-11] MEDS: ZESTRIL PO SCH (10:01)
--- NOTE | 2017-08-11 10:47 | Progress Note ---
Assessment and Plan Alteration of mental status Severe depression Deconditioned physical status Shortness of breath EF 40-45% on echocardiogram this admission low probability for PE on ventilation scan negative for DVT Chest x-ray shows a small right pleural effusion with atelectasis in the right base but no evidence of heart failure or fluid overload. Severe Hypothyroidism TSH level of 29. Hypertension Hx of CAD Continue medical therapy for coronary artery disease and mild cardiomyopathy. Subjective Date of service: 08/11/17 Interval history: Patient is resting in bed comfortably. No cardiac events overnight reported. Objective Vital Signs Temp Pulse Pulse Resp Resp BP BP 08/11/17 10:01 104/65 08/11/17 10:00 08/11/17 07:23 98.7 F 120 H 18 104/65 08/11/17 06:19 08/11/17 05:04 20 08/11/17 04:49 98.8 F 119 H 122/82 08/11/17 02:34 84 18 08/11/17 01:38 98.6 F 107 H 20 121/81 08/10/17 22:54 98 H 138/97 08/10/17 19:56 20 08/10/17 19:52 98.9 F 98 H 20 138/97 08/10/17 19:35 96 H 08/10/17 19:20 86 18 08/10/17 19:00 84 18 08/10/17 14:41 96 H 20 136/89 Pulse Ox 08/11/17 10:01 08/11/17 10:00 94 08/11/17 07:23 96 08/11/17 06:19 96 08/11/17 05:04 08/11/17 04:49 96 08/11/17 02:34 08/11/17 01:38 97 08/10/17 22:54 08/10/17 19:56 08/10/17 19:52 97 08/10/17 19:35 08/10/17 19:20 08/10/17 19:00 08/10/17 14:41 96 - Physical Examination General: No Apparent Distress Cardiac: Positive: Reg Rate and Rhythm - Labs and Meds CBC 08/11/17 Range/Units 05:48 WBC 7.9 (4.5-11.0) K/mm3 RBC 3.35 L (3.65-5.03) M/mm3 Hgb 9.9 L (10.1-14.3) gm/dl Hct 28.8 L (30.3-42.9) % Plt Count 294 (140-440) K/mm3 Lymph # 0.7 L (1.2-5.4) K/mm3 [place] # 0.4 (0.0-0.8) K/mm3 Eos # 0.0 (0.0-0.4) K/mm3 Baso # 0.0 (0.0-0.1) K/mm3 Comprehensive Metabolic Panel 08/11/17 Range/Units 05:48 Sodium 136 L (137-145) mmol/L Potassium 3.7 (3.6-5.0) mmol/L Chloride 90.6 L (98-107) mmol/L Carbon Dioxide 29 (22-30) mmol/L BUN 22 H (7-17) mg/dL Creatinine 1.1 (0.7-1.2) mg/dL Glucose 205 H (65-100) mg/dL Calcium 7.6 L (8.4-10.2) mg/dL
[2017-08-11] MEDS ORDERED: ADRENALIN ONE (11:55)
--- NOTE | 2017-08-11 12:20 | Death Note ---
Note Date of : 08/11/17 Time of : 12:15 Time Pronounced: 12:15 - Preliminary Cause of (problem) (1) GI bleed Preliminary cause of (2) Hemorrhagic shock Preliminary cause of (3) Asystole Preliminary cause of (4) Aspiration into airway Preliminary cause of (5) Altered mental status, unspecified Preliminary cause of (6) Cardiomyopathy Preliminary cause of (7) Hypothyroidism Preliminary cause of (8) NSTEMI (non-ST elevated myocardial infarction) Preliminary cause of
--- NOTE | 2017-08-11 12:27 | Event Note ---
Date: 08/11/17 67-year-old female with severe depression, pneumonia, respiratory failure. When I try to examine the patient, the patient was unresponsive and LEXI FLORENCE was called and she was coded for 19 minutes and couldn't revive the patient. Patient had drooling of saliva, was not breathing , [facility] NAMAN was called and when they tried to intubate her blood was coming out. Patient's abdominal girth was increased. I believe the patient has massive GI bleed. Patient was in Asystole and resuscitated according to ACLS protocol and patient has V.fib one time and was shocked once.
--- NOTE | 2017-08-11 12:27 | Death Summary ---
Summary - Providers Date of service: 08/11/17 Consults: 08/10/17 13:19 Consult to Dietitian/Nutrition [CONS] Stat Physician Instructions: Reason For Exam: Anorexia Reason for Consult: Pt needs oral supplement 08/06/17 08:57 Physical Therapy Evaluation and Treat [CONS] Routine Comment: Reason For Exam: debility 08/06/17 22:07 Consult to Physician [CONS] Routine Consulting Provider: ELAINE NORMAN Reason For Exam: chf Notified:: JAYCOB LANGFORD Consult to Physician [CONS] Routine Consulting Provider: PRINCESS MCDONALD Reason For Exam: copd? resp failure Place consult to:: Notified:: Phone number called:: [phone] Was contact made?: Yes If yes, spoke with:: PEREZ Lee called:: 09:37 Comment:: JOHN 08/06/17 22:11 Consult to Mental Health [CONS] Routine Reason For Exam: behavioral disturbance Place consult to:: Notified:: Phone number called:: [phone] Was contact made?: Yes If yes, spoke with:: PEREZ Lee called:: 10:47 Comment:: JOHN 08/07/17 14:08 Speech Therapy Evaluation and Treat [CONS] Routine Reason For Exam: Eval. swallow/treat; pt. w/ dementia, RLL pneum Attending: BRYAN MILLER MD - summary Date of admission: 08/05/17 23:29 Date of : 08/11/17 Significant findings: 67-year-old female with severe depression, pneumonia, respiratory failure. When I try to examine the patient this morning, the patient was unresponsive and LEXI FLORENCE was called and she was coded for 19 minutes and couldn't revive the patient. Patient had drooling of saliva, was not breathing, [facility] was called and when they tried to intubate her clotted blood was coming out. Patient's abdominal girth was increased. I believe the patient has massive GI bleed. Patient was in Asystole and resuscitated according to ACLS protocol and patient has V.fib one time and was shocked once. Per nurse the patient was stable few minutes before I saw her. Hemoglobin hematocrit was stable. I have discussed with the patient's daughter if they need autopsy they declined. presumed cause of is GI bleed, and possible aspiration of the blood and cause respiratory failure. Everything happened all of a sudden. Pertinent studies: CT chest Small right pleural effusion of uncertain etiology. Bibasilar atelectatic changes, right greater than left. Diffuse hypoattenuation of the liver has developed most consistent with diffuse fatty infiltration. VQ scan Low priority for PE Echo - Ejection fraction 40-45% Disposition: oTlugue - Final diagnosis (1) GI bleed Qualifiers: GI bleed type/associated pathology: unspecified gastrointestinal hemorrhage type Qualified Code(s): K92.2 - Gastrointestinal hemorrhage, unspecified Note: Final diagnosis: (2) Hemorrhagic shock Note: Final diagnosis: (3) Asystole Note: Final diagnosis: (4) Aspiration into airway Note: Final diagnosis: (5) Altered mental status, unspecified Note: Final diagnosis: (6) Cardiomyopathy Qualifiers: Cardiomyopathy type: unspecified Qualified Code(s): I42.9 - Cardiomyopathy , unspecified Note: Final diagnosis: (7) Hypothyroidism Note: Final diagnosis: (8) NSTEMI (non-ST elevated myocardial infarction) Note: Final diagnosis: (9) Coronary artery disease Qualifiers: Coronary Disease-Associated Artery/Lesion type: unspecified vessel or lesion type [place] vs. transplanted heart: [place] heart Associated angina: angina presence unspecified Qualified Code(s): I25.10 - Atherosclerotic heart disease of [place] coronary artery without angina pectoris Note: Final diagnosis: (10) Chest pain Note: Final diagnosis:
== END 2017-08-11 16:13 ==
LOC: ED 20:04 → 2B-ACE 23:29
PROVIDERS: ADMIT Internal Medicine Geriatric Medicine; ATTEND Internal Medicine
PROC: 4A033R1 Measurement of Arterial Saturation, Peripheral, Percutaneous Approach (ICD-10-PCS; principal; 2017-08-07)
PROC: 5A2204Z Restoration of Cardiac Rhythm, Single (ICD-10-PCS; 2017-08-11)
DX: I11.0 Hypertensive heart disease with heart failure (principal); G93.41 Metabolic encephalopathy; I21.4 Non-ST elevation (NSTEMI) myocardial infarction; J96.01 Acute respiratory failure with hypoxia; E43 Unspecified severe protein-calorie malnutrition; J18.9 Pneumonia, unspecified organism; J98.11 Atelectasis; K92.2 Gastrointestinal hemorrhage, unspecified; J44.1 Chronic obstructive pulmonary disease with (acute) exacerbation; I50.23 Acute on chronic systolic (congestive) heart failure; I42.9 Cardiomyopathy, unspecified; E78.5 Hyperlipidemia, unspecified; E03.9 Hypothyroidism, unspecified; E87.6 Hypokalemia; E11.9 Type 2 diabetes mellitus without complications; I25.10 Atherosclerotic heart disease of native coronary artery without angina pectoris; R57.8 Other shock; I46.9 Cardiac arrest, cause unspecified; M19.90 Unspecified osteoarthritis, unspecified site; K21.9 Gastro-esophageal reflux disease without esophagitis; Z96.649 Presence of unspecified artificial hip joint; F32.9 Major depressive disorder, single episode, unspecified; F12.90 Cannabis use, unspecified, uncomplicated; F03.90 Unspecified dementia, unspecified severity, without behavioral disturbance, psychotic disturbance, mood disturbance, and anxiety; E66.9 Obesity, unspecified; Z68.37 Body mass index [BMI] 37.0-37.9, adult; Z79.899 Other long term (current) drug therapy; Z88.5 Allergy status to narcotic agent; Z91.013 Allergy to seafood; Z90.49 Acquired absence of other specified parts of digestive tract; Z82.49 Family history of ischemic heart disease and other diseases of the circulatory system; Z83.3 Family history of diabetes mellitus
CPT/HCPCS: 36415; 36600; 71010; 71250; 78582; 80048; 80053; 80061; 80307; 81001; 82140; 82550; 82553; 82803; 82962; 83036; 83735; 84439; 84443; 84484; 85007; 85025; 85379; 85610; 85730; 87040; 87086; 93005; 93010; 93306; 93970; 94640; 94760; 99285; A9270-GY; A9540; A9558; G8996-GN; G8997-GN; J0171; J1650; J1940; J1956; J2405; J2920; J3480; J7030; J7040